=== PATIENT | male | born 1945 | race Caucasian/White ===

== ENCOUNTER → 2019-06-20 14:23 | Outpatient (CLI) | payer OTHER, SELFPAY ==
[2019-06-20 16:10] LABS: BUN Creatinine Ratio 14.5 (6-22); Blood Urea Nitrogen 16 mg/dL (9-20); Calcium 9.9 mg/dL (8.4-10.2); Carbon Dioxide 28 mmol/L (22-32); Chloride 101 mmol/L (98-107); Cholesterol 230 mg/dL (140-199); Estimated Glomerular Filt Rate > 60.0 mL/min (>60); Glucose 96 mg/dL (80-110); HDL Cholesterol 35 mg/dL (40-60); HEMOLYSIS < 15 (0-50); LDL Cholesterol Calculated 164 mg/dL (<100); Potassium 4.7 mmol/L (3.4-5.1); Sodium 139 mmol/L (137-145); Triglycerides 154 mg/dL (35-150)
== END ==
PROVIDERS: PCP Student in an Organized Health Care Education/Training Program; Visit Provider Student in an Organized Health Care Education/Training Program
DX: E78.2 Mixed hyperlipidemia (principal); I10 Essential (primary) hypertension; I25.10 Atherosclerotic heart disease of native coronary artery without angina pectoris; E55.9 Vitamin D deficiency, unspecified
CPT/HCPCS: 36415; 80048; 80061; 82306

== ENCOUNTER 2019-08-29 21:13 | Emergency (ER) | payer OTHER, SELFPAY ==
[2019-08-29 21:17] VITALS: BP 195/83; PULSE 54; RESP 16; TEMP 36.3; O2SAT 97
--- NOTE | 2019-08-29 21:28 | DI.RAD.S_ITS ---
PROCEDURE: XR CHEST 1V INDICATIONS: chest pain TECHNIQUE: One view of the chest was acquired. COMPARISON: [facility], , CHEST 2 VIEW, 02/07/2014, 14:30. [facility], , CHEST 1 VIEW, 07/03/2012, 8:26. FINDINGS: Surgical changes and devices: Post median sternotomy and CABG. Lungs and pleura: Lungs appear clear. No pleural effusions or pneumothorax. Mediastinum: Mediastinal contours appear normal. Heart size is unchanged. Bones and chest wall: No suspicious bony lesions. Overlying soft tissues appear unremarkable. IMPRESSION: No acute cardiopulmonary abnormality demonstrated. Dictated by: Zach Deleon M.D. on 08/29/2019 at 22:03 Approved by: Zach Deleon M.D. on 08/29/2019 at 22:04
[2019-08-29 21:50] LABS: Add Manual Diff / Slide Review NO; Basophils Absolute Auto 100 /uL (0-100); Basophils Percent Auto 1.2 % (0-2); Eosinophils Absolute Auto 100 /uL (0-450); Eosinophils Percent Auto 1.5 % (2-4); Hematocrit 45.9 % (41-53); Hemoglobin 15.8 g/dL (13.5-17.5); Lymphocytes Absolute Auto 2800 /uL (1100-4500); Mean Corpuscular HGB Conc 34.5 % (30-36); Mean Corpuscular Hemoglobin 31.1 PG (26-34); Mean Corpuscular Volume 90.3 fL (80-100); Monocytes Absolute Auto 1100 /uL (0-900); Monocytes Percent Auto 11.6 % (3-14); Neutrophils Absolute Auto 5400 /uL (1500-7000); Neutrophils Percent Auto 56.7 % (50-75); Platelet Count 289 X10^3/uL (150-400); Red Blood Cell Count 5.09 X10^6/uL (4.5-5.9); Red Cell Distribution Width 12.4 % (11.6-14.8); White Blood Cell Count 9.6 X10^3/uL (4.5-11.0)
[2019-08-29 21:59] LABS: Prothrombin Time 11.2 SECONDS (10.1-12.7)
[2019-08-29 22:01] LABS: PTT Partial Thromboplastin Tim 32 SECONDS (26.4-36.2)
[2019-08-29 22:03] LABS: Alanine Aminotransferase 23 IU/L (<50); Albumin 4.2 g/dL (3.5-5.0); Albumin Globulin Ratio 1.3 (1.0-2.8); Alkaline Phosphatase 89 U/L (38-126); Aspartate Aminotransferase 30 IU/L (17-59); Bilirubin Total 0.5 mg/dL (0.2-1.3); Blood Urea Nitrogen 17 mg/dL (9-20); Calcium 9.6 mg/dL (8.4-10.2); Carbon Dioxide 29 mmol/L (22-32); Chloride 100 mmol/L (98-107); Creatine Kinase 56 U/L (55-170); Estimated Glomerular Filt Rate > 60.0 mL/min (>60); Globulin 3.2 g/dL (1.7-4.1); Glucose 94 mg/dL (80-110); HEMOLYSIS 42 (0-50); Lipase 204 U/L (23-300); Sodium 137 mmol/L (137-145); Total Protein 7.4 g/dL (6.3-8.2)
[2019-08-29 22:14] LABS: Troponin I < 0.012 ng/mL (0.01-0.034)
[2019-08-29 22:56] VITALS: BP 196/88; PULSE 53; RESP 18; O2SAT 99
[2019-08-29 23:15] VITALS: BP 204/93; PULSE 46; RESP 18; O2SAT 99
[2019-08-30] VITALS: BP 206/91; PULSE 48; RESP 25; O2SAT 99
--- NOTE | 2019-08-30 00:13 | PC.NURSE ---
0000 hours: Volar splint applied right wrist per Dr Wadsworth. Pt education in re: CSM and capillary refil provided, Pt and daughter verbalize understanding of need to loosen splint as needed. Pt ambulates with steady gait across the [place].
[2019-08-30 00:30] LABS: Creatine Kinase 61 U/L (55-170)
[2019-08-30 00:43] LABS: Troponin I < 0.012 ng/mL (0.01-0.034)
--- NOTE | 2019-08-30 00:47 | ED.CHESTPAIN ---
HPI - Chest Pain General Chief Complaint: Chest Pain Stated Complaint: chest pressure - now relieving Time Seen by Provider: 08/30/19 00:47 Source: patient Mode of arrival: Ambulatory Limitations: no limitations History of Present Illness HPI narrative: This is a 74-year-old male comes to the emergency department with complaint of chest pressure that occurred around 1700. Patient states he was taking a nap. When he woke up he felt a little bit of pressure in his left chest he describes as mild to moderate. Patient states that it went away within 10 or 15 minutes he has also had a little bit of heartburn which he states is exacerbated when he lays flat and improves when he is upright. He has not had any fevers, no cold cough or congestion, no shortness of breath, no nausea or vomiting, no sweats or diaphoresis. Denies any lightheadedness. No edema in his lower upper extremities. He has not had any issues with chest pain or pressure recently. 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 He takes an aspirin daily, metoprolol an antidepressant. He does not take a statin as he had side effect issues. He denies any history of diabetes. He denies any other surgery besides his CABG. He has not had a stress test or heart catheterization Um since his surgery. He states that he was cleared by his swiss type screw machine operator and has not required any additional testing. He states he has been feeling well over the last several years and feels much healthier than he did before his CABG. Denies any allergies to medications. No tobacco, occasional alcohol and no illicit. Related Data Home Medications Medication Instructions Recorded Confirmed citalopram 20 mg tablet 20 mg PO DAILY 06/20/19 06/20/19 gemfibrozil 600 mg tablet 600 mg PO BID 06/20/19 06/20/19 lisinopril 5 mg tablet 5 mg PO DAILY 06/20/19 06/20/19 metoprolol tartrate 100 mg tablet 100 mg PO DAILY 06/20/19 06/20/19 aspirin 81 mg tablet,delayed 81 mg PO DAILY 06/21/19 06/21/19 release Allergies Allergy/AdvReac Type Severity Reaction Status Date / Time Vrtvazx-Jyb-Ttl Reductase AdvReac Unknown Verified 08/29/19 21:24 Inhibitor [QPEDRIL-BGP-ALN REDUCTASE INHIBITOR] Review of Systems Review of Systems ROS Unobtainable: All systems reviewed & are unremarkable except as noted in HPI and below Patient History Medical History (Updated 08/30/19 @ 01:11 by Merline Wadsworth DO) Constipation (Inactive) Coronary artery disease (Acute) Surgical History (Updated 08/30/19 @ 01:11 by Merline Wadsworth DO) Hx of CABG (Acute) Social History Smoking Status: Former smoker Smoking Status: Former smoker alcohol intake frequency: holidays/special occasions only Substance Use Type: does not use Exam Narrative Exam Narrative: GENERAL: Alert and oriented x three, well-nourished, well-appearing male in no acute distress. HEENT: Head normocephalic, atraumatic, EOMI, pupils reactive, face symmetric, moist mucous membranes NECK: Supple, full range of motion CARDIOVASCULAR: Regular rate and rhythm without murmurs, rubs or gallops. Patient has midline incision consistent with prior CABG. It appears healed. RESPIRATORY: Breath sounds equal bilaterally, no wheezes rales or rhonchi. ABDOMEN: Soft, nontender. Normoactive bowel sounds all 4 quadrants. No guarding or rebound, rigidity, no mass : No CVA tenderness EXTREMITIES: Normal range of motion, no clubbing or edema. Neurovascularly intact NEUROLOGICAL: Cranial nerves II through XII grossly intact. Moving all extremities SKIN: Warm, dry, no petechiae, no rashes or lesions. Initial Vital Signs Initial Vital Signs: Vital Signs Temperature 97.3 F L 08/29/19 21:17 Pulse Rate 54 L 08/29/19 21:17 Respiratory Rate 16 08/29/19 21:17 Blood Pressure 195/83 H 08/29/19 21:17 Pulse Oximetry 97 08/29/19 21:17 Course Orders Ordered: ED Orders 08/30/19 00:08 EKG-12 Lead Stat 08/30/19 00:12 Troponin & CK Cardiac Panel Stat Vital Signs Vital signs: Vital Signs - 8 hr 08/29/19 22:56 08/29/19 23:15 08/30/19 00:00 Pulse Rate 53 L 46 L 48 L Respiratory Rate 18 18 25 H Blood Pressure [Right Arm] 196/88 H 204/93 H 206/91 H Pulse Oximetry 99 99 99 08/30/19 00:51 Pulse Rate 65 Respiratory Rate 20 Blood Pressure [Right Arm] 150/90 H Pulse Oximetry 96 MDM - Chest Pain Lab Data Attestation: I reviewed the patient's lab results. Result diagrams: 08/29/19 21:40 08/29/19 21:40 Labs: Lab Results 08/29/19 08/29/19 08/29/19 Range/Units 21:40 21:40 21:40 WBC 9.6 (4.5-11.0) X10^3/uL RBC 5.09 (4.5-5.9) X10^6/uL Hgb 15.8 (13.5-17.5) g/dL Hct 45.9 (41-53) % MCV 90.3 (80-100) fL MCH 31.1 (26-34) PG MCHC 34.5 (30-36) % RDW 12.4 (11.6-14.8) % Plt Count 289 (150-400) X10^3/uL Neut % (Auto) 56.7 (50-75) % Lymph % (Auto) 29.0 (25-40) % [place] % (Auto) 11.6 (3-14) % Eos % (Auto) 1.5 L (2-4) % Baso % (Auto) 1.2 (0-2) % Neut # (Auto) 5400 (3147-4318) /uL Lymph # (Auto) 2800 (1868-3286) /uL [place] # (Auto) 1100 H (0-900) /uL Eos # (Auto) 100 (0-450) /uL Baso # (Auto) 100 (0-100) /uL PT 11.2 (10.1-12.7) SECONDS INR 1.0 (0.9-1.3) APTT 32 (26.4-36.2) SECONDS Sodium 137 (137-145) mmol/L Potassium 4.0 (3.4-5.1) mmol/L Chloride 100 (98-107) mmol/L Carbon Dioxide 29 (22-32) mmol/L BUN 17 (9-20) mg/dL Creatinine 1.00 (0.66-1.25) mg/dL Estimated GFR > 60.0 (>60) mL/min BUN/Creatinine Ratio 17.0 (6-22) Glucose 94 (80-110) mg/dL Calcium 9.6 (8.4-10.2) mg/dL Total Bilirubin 0.5 (0.2-1.3) mg/dL AST 30 (17-59) IU/L ALT 23 (<50) IU/L Alkaline Phosphatase 89 (38-126) U/L Total Creatine Kinase 56 (55-170) U/L CK-MB (CK-2) TNP CK-MB (CK-2) Rel Index TNP Troponin I < 0.012 (0.01-0.034) ng/mL Total Protein 7.4 (6.3-8.2) g/dL Albumin 4.2 (3.5-5.0) g/dL Globulin 3.2 (1.7-4.1) g/dL Albumin/Globulin Ratio 1.3 (1.0-2.8) Lipase 204 (23-300) U/L 08/30/19 Range/Units 00:12 WBC (4.5-11.0) X10^3/uL RBC (4.5-5.9) X10^6/uL Hgb (13.5-17.5) g/dL Hct (41-53) % MCV (80-100) fL MCH (26-34) PG MCHC (30-36) % RDW (11.6-14.8) % Plt Count (150-400) X10^3/uL Neut % (Auto) (50-75) % Lymph % (Auto) (25-40) % [place] % (Auto) (3-14) % Eos % (Auto) (2-4) % Baso % (Auto) (0-2) % Neut # (Auto) (7849-5251) /uL Lymph # (Auto) (8239-8995) /uL [place] # (Auto) (0-900) /uL Eos # (Auto) (0-450) /uL Baso # (Auto) (0-100) /uL PT (10.1-12.7) SECONDS INR (0.9-1.3) APTT (26.4-36.2) SECONDS Sodium (137-145) mmol/L Potassium (3.4-5.1) mmol/L Chloride (98-107) mmol/L Carbon Dioxide (22-32) mmol/L BUN (9-20) mg/dL Creatinine (0.66-1.25) mg/dL Estimated GFR (>60) mL/min BUN/Creatinine Ratio (6-22) Glucose (80-110) mg/dL Calcium (8.4-10.2) mg/dL Total Bilirubin (0.2-1.3) mg/dL AST (17-59) IU/L ALT (<50) IU/L Alkaline Phosphatase (38-126) U/L Total Creatine Kinase 61 (55-170) U/L CK-MB (CK-2) TNP CK-MB (CK-2) Rel Index TNP Troponin I < 0.012 (0.01-0.034) ng/mL Total Protein (6.3-8.2) g/dL Albumin (3.5-5.0) g/dL Globulin (1.7-4.1) g/dL Albumin/Globulin Ratio (1.0-2.8) Lipase (23-300) U/L Imaging Data Chest x-ray: Radiologist's Impression: [place] [address] XRay Report Signed Patient: José Antonio Pagan WMR#: [id number] : 6Acct:[id number] Age/Sex: 74 / MDate of Service: 08/29/19 Loc: ED Accession Number: [id number] Procedure: XR chest 1V Ordering Provider: Merline Wadsworth D.O. PROCEDURE: XR CHEST 1V INDICATIONS: chest pain TECHNIQUE: One view of the chest was acquired. COMPARISON: [facility], , CHEST 2 VIEW, 02/07/2014, 14:30. [facility], CHEST 1 VIEW, 07/03/2012, 8:26. FINDINGS: Surgical changes and devices: Post median sternotomy and CABG. Lungs and pleura: Lungs appear clear. No pleural effusions or pneumothorax. Mediastinum: Mediastinal contours appear normal. Heart size is unchanged. Bones and chest wall: No suspicious bony lesions. Overlying soft tissues appear unremarkable. IMPRESSION: No acute cardiopulmonary abnormality demonstrated. Dictated by: Zach Deleon M.D. on 08/29/2019 at 22:03 Approved by: Zach Deleon M.D. on 08/29/2019 at 22:04 ECG Data Attestation: I personally reviewed and interpreted this ECG as follows: Prior ECG tracings: available for review Interpretation: Sinus bradycardia rate of 48 P are 173 QRS of 95 and QTC of 406. No ST elevation or depression appreciated. Patient has prior EKG from 12/25/[address] segment changes. EKG 2. Shows sinus bradycardia with rate of 46 P are 184 QRS of 90 QTC of 406. No ST elevation depression. Similar to prior today. MDM Narrative Medical decision making narrative: Patient comes in with an episode of chest pressure at about 1700 today that since resolved after about 15 minutes. Patient has not had any recurrent her similar symptoms. His initial troponin and repeat were negative. Discussed with patient he clearly has risk factors with his prior CABG, does not sound like he has had any further evaluation of his CABG since he had it done in 2013 unclear if this is cardiac in nature but there is definitely potential. We discussed observation with serial enzymes and stress testing in the morning and patient defers and would prefer to return home despite recommendation for observation. We discussed that we cannot completely rule out cardiac cause and that he needs to follow up with either his primary care or Cardiology for short-term stress testing possibly catheterization if his swiss type screw machine operator felt appropriate. Patient has seen Dr. Valente, he does not have a current swiss type screw machine operator but was also offered referral. Spoke with Dr. Reeves who is covering for Dr. Valente, he will help make sure that the office follows up with the patient so that either tomorrow or on Monday or Monday patient can have repeat evaluation and stress testing. Discharge Plan Departure Patient Disposition: Home Clinical Impression: Chest pain Qualifiers: Chest pain type: unspecified Qualified Code(s): R07.9 - Chest pain, unspecified Discharge Date/Time: 08/30/19 01:18 Instructions: DI for Chest Pain Activity Restrictions/Additional Instructions: Follow-up with either your primary care physician or Cardiology for recheck and further evaluation which may include stress testing. Call tomorrow morning, I would recommend stress testing in the next 24-72 hours. Continue your aspirin daily. Return to the ER for new or recurrent symptoms, new chest pain or pressure, shortness of breath, lightheadedness, sweating, persistent vomiting or nausea, new swelling in her extremities or other new or concerning symptoms. Prescriptions: No Action metoprolol tartrate 100 mg tablet 100 mg PO DAILY RF: 0 gemfibrozil 600 mg tablet 600 mg PO BID RF: 0 lisinopril 5 mg tablet 5 mg PO DAILY RF: 0 citalopram 20 mg tablet 20 mg PO DAILY RF: 0 aspirin 81 mg tablet,delayed release (DR/EC) 81 mg PO DAILY RF: 0 Referrals: Kumar Valente MD [Primary Care Provider] - Calista Natarajan MD [Physician] -
[2019-08-30 00:51] VITALS: BP 150/90; PULSE 65; RESP 20; O2SAT 96
== END 2019-08-30 01:18 | disposition home or self-care (01) ==
PROVIDERS: Emergency Provider Emergency Medicine; PCP Student in an Organized Health Care Education/Training Program; Referring Provider Student in an Organized Health Care Education/Training Program
DX: R07.9 Chest pain, unspecified (principal); R00.1 Bradycardia, unspecified; I25.10 Atherosclerotic heart disease of native coronary artery without angina pectoris
CPT/HCPCS: 36415; 71045; 80053; 82550; 83690; 84484; 85025; 85610; 85730; 93005; 99284; 99285

== ENCOUNTER → 2019-11-29 09:20 | Outpatient (CLI) | payer OTHER, SELFPAY ==
--- NOTE | 2019-11-29 14:34 | PM.TREADMILL ---
Cardiac Stress Test Report Referral & Results Date Patient Seen: 11/29/19 Time Patient Seen: 14:15 Requesting provider: Kumar Valente Indication: Angina, hypertension Rest ECG: Normal sinus rhythm Procedure Note: Today following both written and verbal informed consent the patient was exercised according to a standard Khurram protocol patient went for a total of 4 minutes 51 seconds achieving a maximum heart rate of 147 maximum systolic blood pressure of 200. This is approximately 7.0 METs. Exercise was terminated at this point because of fatigue and calf pain. Patient was also given Cardiolite through a previously started Hep-Lock IV by the nuclear security officer approximately 1 minute prior to the cessation of exercise. Normal hemodynamic response to exercise. Rapidly short of breath and complained of calf pain after starting exertion. No change in rhythm. No ST deviations. No chest/arm/jaw pain. MAX +30% on active scale. Impression: Intermediate probability for ischemia. Patient is post CABG x4 several years ago. Will await perfusion imaging. Please note: Actual ECG tracings can be found in the PACS system.
--- NOTE | 2019-11-30 02:14 | DI.NM.S_ITS ---
DATE OF SERVICE: 11/29/2019 PROCEDURE: Exercise perfusion study. INDICATIONS: CAD status post coronary artery bypass surgery in the remote past, hypertension, hyperlipidemia. Exercise perfusion study was scheduled for CAD risk stratification. RADIOPHARMACEUTICAL: 26.2 mCi technetium-99m Myoview IV was injected at stress and 12.3 mCi technetium-99m Myoview IV was injected at rest. This is a one-day protocol. CARDIAC STRESS: The patient underwent exercise perfusion study under the supervision of an attending staff. The patient walked on Khurram protocol for 4 minutes 51 seconds and developed fatigue and leg pain. The patient achieved 100% of target heart rate. Baseline blood pressure 126/76. Peak blood pressure 200/89 with mild hypertensive response. No significant ischemic changes. No significant sustained arrhythmias. The patient achieved seven mets of workload and functional aerobic impairment positive 30%. RAW DATA: There is increased subdiaphragmatic activity. Gated study is stress LV ejection fraction 88% and resting LV ejection fraction 75%. No obvious wall motion abnormalities. Resting end-diastolic volume 76 mL. TID ratio 0.64, which is within normal limits. Lung heart ratio 0.28, which is within normal limits. MYOCARDIAL PERFUSION SCAN: Resting supine images revealed mildly decreased perfusion of base to mid inferior wall. However, stress supine and stress prone images revealed normal myocardial perfusion. CONCLUSION: I will call this study a normal myocardial perfusion study as stress supine and stress prone images revealed normal myocardial perfusion. No convincing ischemia or infarction pattern seen. Preserved LV function. Mild hypertensive response. Diminished exercise tolerance. The patient felt fatigue and leg pain. Consider workup to rule out peripheral artery disease. As far as perfusion scan is concerned, this is a low risk myocardial perfusion scan. José Antonio Pagan - ANDRZEJ/colby/KEYUR doc#: [id number]/job#: [id number] dd: 11/29/2019 17:11:00 dt: 11/30/2019 02:00:00 DICTATING MD/COPIES TO: Placido Wright MD COPIES MNE: DANILO;
== END ==
PROVIDERS: PCP Student in an Organized Health Care Education/Training Program; Referring Provider Student in an Organized Health Care Education/Training Program; Visit Provider Student in an Organized Health Care Education/Training Program
DX: I25.119 Atherosclerotic heart disease of native coronary artery with unspecified angina pectoris (principal); R07.9 Chest pain, unspecified; R53.83 Other fatigue; R05 Cough; I10 Essential (primary) hypertension; E78.5 Hyperlipidemia, unspecified; Z95.1 Presence of aortocoronary bypass graft
CPT/HCPCS: 78452; 93016; 93017; 93018; A9502

== ENCOUNTER → 2020-09-16 14:45 | Outpatient (CLI) | payer OTHER, SELFPAY ==
--- NOTE | 2020-09-16 14:50 | DI.ECHO.S_ITS ---
[facility]---------+ [facility] +---------+ : : [address] : : : : [id number] : : : : Phone: [phone] Echocardiogram Report + + :Name: BRIAN MASON Study Date: 09/16/2020 Height: 68 in : :[facility] ReadingLocation: Weight: 191 lb : : Gender: Male BSA: 2.0 m2 : :: 1945 Age: 75 yrs BP: 149/87 mmHg: :Reason For Study: ENCOUNTER FOR GENERAL ADULT MEDICAL : :EXAMINATION : :Ordering Physician: NICOLE, : :CORKY Performed By: Teetee Garzon : :Referring: CORKY RIVERA : + + Interpretation Summary Normal sinus rhythm. Normal LV size, wall thickness, wall motion and LV systolic function. EF is 60-65%. Mild LA enlargement; otherwise normal chamber sizes. No significant valvular abnormalities. Mildly dilated ascending aorta. Procedure: A two-dimensional transthoracic echocardiogram with color flow and Doppler was performed. The study quality was technically adequate. There is no prior echocardiogram noted for this patient. The patient was in sinus rhythm with heart rates between 58-75 bpm during the exam. Left Ventricle: The left ventricle is normal in size and wall thickness. The ejection fraction is estimated to be 60-65%. Diastolic parameters suggest probable normal left ventricular diastolic function and normal filling pressures. Right Ventricle: The right ventricle is normal in size and function. Atria: The left atrium is mildly dilated. Right atrial size is normal. There is no Doppler evidence for an interatrial shunt. Mitral Valve: The mitral valve is normal in structure and function. There is trace mitral regurgitation. Aortic Valve: The aortic valve is trileaflet. The aortic valve opens well. The aortic valve is slightly calcified. There is no aortic valve stenosis. No aortic regurgitation is present. Tricuspid Valve: The tricuspid valve is normal in structure and function. There is trace tricuspid regurgitation. Pulmonary artery pressures cannot be estimated because of the lack of a measurable TR jet velocity but the IVC suggests a CVP of around 3 mmHg. Pulmonic Valve: The pulmonic valve leaflets are thin and pliable; valve motion is normal. There is a trace or physiologic amount of pulmonic regurgitation. Great Vessels: The aortic root is normal size. The ascending aorta is mildly enlarged. The IVC is of normal diameter and collapses greater than 50% with a sniff. This suggests a low right atrial pressure of 3 mm Hg. Pericardium/ Pleura There is no pericardial effusion. There is no pleural effusion. MMode/2D Measurements & Calculations LVIDd: 4.8 cm LVOT diam: 2.0 cm LVIDs: 3.0 cm Ao root diam: 3.0 cm FS: 38.9 % asc Aorta Diam: 3.4 cm EPSS: 0.49 cm Ao Arch Diam (Prox Trans): 3.3 cm IVSd: 0.77 cm LVPWd: 1.1 cm LV nugent. diameter/BSA (cm/m^2): 2.4 LV sys. diameter/BSA (cm/m^2): 1.5 LA A2 area: 23.6 cm2 RA long axis: 4.7 cm LA A4 area: 21.4 cm2 RA area: 15.2 cm2 LA length (vol): 5.6 cm RA vol: 41.6 ml LA vol: 76.7 ml RA : 20.8 ml/m2 LA vol index: 38.3 ml/m2 IVC diam: 1.3 cm RVD1 (basal): 2.5 cm TAPSE: 2.1 cm Doppler Measurements & Calculations Ao V2 max: 148.9 cm/sec LVOT Max Sam: 127.2 cm/sec Ao V2 mean: 96.3 cm/sec LV V1 max P.5 mmHg Ao max P.9 mmHg LV V1 VTI: 29.9 cm Ao mean P.3 mmHg DEEDEE(I,D): 3.2 cm2 Ao V2 VTI: 30.4 cm DEEDEE(V,D): 2.8 cm2 sev ratio: 0.98 DEEDEE indexed to BSA (cm^2/m^2): 1.6 MV E max sam: 79.6 cm/sec PA V2 max: 79.6 cm/sec MV A max sam: 107.3 cm/sec PA V2 mean: 51.9 cm/sec MV E/A: 0.74 PA mean P.3 mmHg Med Peak E' Sam: 7.3 cm/sec PA pr(Accel): 25.9 mmHg E/E' med: 10.8 Lat Peak E' Sam: 11.0 cm/sec E/E' lat: 7.2 E/e' average: 9.0 MV dec time: 0.32 sec SV(LVOT): 98.0 ml Electronically signed by: Calista Natarajan M.D. on Reading Physician:09/17/2020 12:19 AM
== END ==
PROVIDERS: PCP Family Medicine; Referring Provider Physician Assistant; Visit Provider Physician Assistant
DX: Z00.00 Encounter for general adult medical examination without abnormal findings (principal); I77.89 Other specified disorders of arteries and arterioles
CPT/HCPCS: 93306

== ENCOUNTER 2021-08-07 16:18 | Emergency (ER) | payer OTHER, SELFPAY ==
[2021-08-07 16:25] VITALS: BP 119/84; PULSE 89; RESP 14; TEMP 36.6; O2SAT 96; BMI 27.3
--- NOTE | 2021-08-07 17:05 | ED.FALL ---
HPI - Fall General Chief Complaint: Fall Stated Complaint: Fell on forehead/nose injury today Time Seen by Provider: 08/07/21 17:05 Source: patient Mode of arrival: Ambulatory Limitations: no limitations History of Present Illness HPI Narrative: This is a 76-year-old who had was describes a trip and fall today. Patient had walked down town return home. He was walking down the driveway which is downsloping any states his feet got away from him any fell forward onto his face. He has abrasions over his forehead nose and cheek he has a small laceration over the bridge of his nose. Patient states he did think he had any loss of consciousness. It was not witnessed by his but his neighbor saw him in the driveway call her and she came out. Does have some history of dementia he is on amantadine and prazosin for aggression. He does take an aspirin daily, lisinopril, gemfibrozil and has had a prior CABG. He was complaining of little bit of right hip pain but has been ambulating without issue and states that it is no longer present. He has had normal range of motion. Denies other injuries other than some abrasion over his hand. His believes his tetanus is up-to-date in the last year. [facility] he does have an allergy to statins. Related Data Home Medications Medication Instructions Recorded Confirmed aspirin 81 mg tablet,delayed 81 mg PO DAILY 06/21/19 10/04/19 release Previous Rx's Medication Instructions Recorded gemfibrozil 600 mg tablet 600 mg PO BID #180 tab 10/04/19 lisinopril 20 mg tablet 20 mg PO DAILY #90 tab 10/04/19 metoprolol succinate 100 mg 100 mg PO DAILY #90 tab 12/11/19 tablet,extended release 24 hr citalopram 20 mg tablet 30 mg PO DAILY #135 tab 01/23/20 Allergies Allergy/AdvReac Type Severity Reaction Status Date / Time Fjnlknh-[id number]-[id number] Reductase AdvReac Unknown Verified 10/04/19 13:09 Inhibitor [[id number]-VOT REDUCTASE INHIBITOR] Review of Systems Review of Systems ROS Unobtainable: All systems reviewed & are unremarkable except as noted in HPI and below Patient History Medical History Constipation Coronary artery disease Surgical History Hx of CABG Social History Smoking Status: Former smoker Smoking Status: Former smoker alcohol intake frequency: holidays/special occasions only Substance Use Type: does not use Exam Narrative Exam Narrative: GEN: Patient appears in mild distress. HEAD: Patient has a abrasion across the forehead with 2 small hematomas, no raccoon/Gonzalez sign. NECK: Nontender, painless range of motion, trachea midline Positive for for Nexus criteria, there is no midline line tenderness, distracting injury, patient has his baseline altered mental status from dementia with no new changes. Neuro deficit, recent EtOH. EYES: PERRLA, EOMI ENT: External inspection normal except for abrasion over the bridge of the nose, right she right roberts. Patient does have a small 1 cm laceration over the bridge of the nose which is slightly gapped, he had is through the superficial skin but no bone is exposed or cartilage, trachea is midline, TM's are normal no hemotypanum, Nares are clear, no septal hematoma, no dental or oral injury, airway is normal and with normal occlusion, No bony tenderness RESP: Chest is nontender and has symmetric movement, no ecchymosis, breath sounds are normal no crackles, wheezes or rales CVS: Heart sounds are normal, no murmur noted, No JVD. ABG/GI: Nontender, soft, normal bowel sounds, no distention, no organomegaly, pelvic rock is negative NEURO: Oriented AOx3, neuro is grossly intact, sensation and motor is normal all 4 extremities moving, cranial nerves II through XII are intact, GCS is 15 PSYCH: Normal mood and affect SKIN: Intact except for abrasion over the right knuckle, and dry, no crepitus and without decubitus BACK: No CVA tenderness, no vertebral tenderness, no step-off's, no crepitus EXT: Atraumatic, hips are nontender, no pedal edema, normal color and temperature, normal range of motion of extremities with normal tendon exam, 2+ pulses in all four extremities Initial Vital Signs Initial Vital Signs: Vital Signs Temperature 97.8 F 08/07/21 16:25 Pulse Rate 89 08/07/21 16:25 Respiratory Rate 14 08/07/21 16:25 Blood Pressure 119/84 08/07/21 16:25 Pulse Oximetry 96 08/07/21 16:25 Procedures Laceration Repair Laceration 1: Time of procedure: 18:49 Site: face Size (cm): 1.2 Description: flap Depth: simple, single layer Local Anesthetic: lidocaine 1% Amount of anesthesia used (mL): 1.5 Pre-repair: wound explored, irrigated extensively and deep structures intact Skin layer closed with: vicryl Size (cm): 5-0 Number of sutures: 4 Technique: simple, interrupted Course Orders Ordered: Discontinued Medications Lidocaine/Prilocaine (Lidocaine/Prilocaine 5 Gm) 5 gm TOP NOW ONE Stop: 08/07/21 17:18 Last Admin: 08/07/21 17:52 Dose: 5 gm Documented by: CLAUDIA Lidocaine/Sodium Bicarbonate (Lido 1%/Sod Bicarb 8.4% (10ml) 10 Ml Syringe) 10 ml INJ NOW ONE Stop: 08/07/21 18:19 Vital Signs Vital signs: Vital Signs - 8 hr 08/07/21 16:25 Temperature 97.8 F Pulse Rate 89 Respiratory Rate 14 Blood Pressure 119/84 Pulse Oximetry 96 MDM - Fall Imaging Data CT scan - head: Radiologist's Impression: [place] [address] CT Scan Report Signed Patient: José Antonio Pagan MR#: [id number] : 1945 Acct:[id number] Age/Sex: 76 / M Date of Service: 08/07/21 Loc: ED Accession Number: [id number] ?? Procedure: CT head/brain wo con Ordering Provider: Merline Wadsworth D.O. PROCEDURE:? CT HEAD/BRAIN WO CON ? INDICATIONS:? fall, lac over nose. on asa ? TECHNIQUE:? Noncontrast 4.5 mm thick angled axial sections acquired from the foramen magnum to the vertex, with coronal and sagittal reformats.? For radiation dose reduction, the following was used:? automated exposure control, adjustment of mA and/or kV according to patient size.? ? COMPARISON:? [facility], CT, HEAD WITHOUT CONTRAST, 07/03/2012, 7:39. ? FINDINGS:? Image quality:? Excellent.? ? CSF spaces:? Basal cisterns are patent.? No extra-axial fluid collections.? The ventricles are symmetric in size and shape.? ? Brain:? No intracranial bleeds or masses.? There is cerebral volume loss for age, with resultant ventricular and sulcal prominence.? There are periventricular and deep white matter chronic small vessel ischemic changes.? There is proximal intracranial artery atherosclerosis.? ? Skull and face:? Calvarium is intact.? There is a nondisplaced distal nasal bone fracture.? Facial bones are otherwise intact within limits of this exam. ? Sinuses:? Visualized sinuses and mastoids are clear.? ? IMPRESSION:? ? Findings consistent with cerebral atrophy and microvascular ischemic changes without evidence of an acute intracranial hemorrhage or transcortical infarction. ? Nondisplaced distal nasal bone fracture.? ? Dictated by: Michael Zavala D.O. on 08/07/2021 at 16:51 ? ? Approved by: Michael Zavala D.O. on 08/07/2021 at 16:54?? CT - cervical spine: Radiologist's Impression: [place] [address] CT Scan Report Signed Patient: José Antonio Pagan MR#: [id number] : 1945 Acct:[id number] Age/Sex: 76 / M Date of Service: 08/07/21 Loc: ED Accession Number: [id number] ?? Procedure: CT cervical spine wo con Ordering Provider: Merline Wadsworth D.O. PROCEDURE:? CT CERVICAL SPINE WO CON ? INDICATIONS:? fall, hx dementia ? TECHNIQUE:? Noncontrast 3 mm thick sections acquired from the skull base to the T4 level.? Sagittal and coronal reformats were then constructed.? For radiation dose reduction, the following was used:? automated exposure control, adjustment of mA and/or kV according to patient size.? ? COMPARISON:? None. ? FINDINGS:? Image quality:? Excellent.? ? Bones:? No fractures or dislocations of the cervical spine.? Likely degenerative minimal retrolisthesis of C5 on C6.? Visualized superior ribs are intact.? Multilevel degenerative changes of the cervical spine worse at C5-C6 and C6-C7 where there is near complete intervertebral disc space loss and endplate degenerative changes.? There is at least mild bony neural foraminal stenosis at this is levels.? Nondisplaced nasal bone fracture again identified. ? Soft tissues:? Prevertebral soft tissues are normal in thickness.? No paravertebral hematomas.? No apical pneumothoraces.? [place] tonsilliths.? Scattered vascular calcifications worse within the carotid bifurcations. ? ? IMPRESSION:? ? No acute fracture or dislocation. ? Multilevel cervical spondylopathy worse at C5-C6 and C6-C7. ? Dictated by: Michael Zavala D.O. on 08/07/2021 at 16:54 ? ? Approved by: Michael Zavala D.O. on 08/07/2021 at 16:59?? MDM Narrative Medical decision making narrative: This is a 76-year-old male with a known history of dementia who appears to be at his baseline. He is accompanied by his today. He had a fall today. He has abrasions with a small laceration over his nose. states his tetanus is up-to-date. Plan for head CT, C-spine and patient does several small stitches of the laceration over the bridge of his nose. Wound care for the rest of his abrasions. Head CT is negative patient is anticoagulated with an aspirin daily. He does have a nasal fracture. Patient tolerated laceration repair well. All return precautions were discussed with patient's who helps him his daily issues. No questions or concerns otherwise. Discharge Plan Departure Patient Disposition: Home Clinical Impression: Facial laceration, Fall, Contusion of forehead, Abrasion of face, Fracture, nasal Instructions: DI for Laceration Repair -- Simple Activity Restrictions/Additional Instructions: Follow-up with your physician for recheck if you have any minor concerns. You have absorbable sutures placed. They should not require removal but if they are still present more than a week later follow-up to have them removed. Wound Care: Keep wound(s) clean and dry. Wash daily with soap and water only. Do not use over the counter products (alcohol or peroxide)on the wounds unless instructed by a physician. If wound condition worsens (increased/expanding redness, developing fluid blisters, or worsening pain), either contact your doctor for an urgent re-assessment , or return to the Emergency Department. Return to the Emergency Department for any new or worsening symptoms. Return if fever greater than 100.4 Fahrenheit, increased swelling, increasing pain or worsening symptoms such as increased discharge or spreading redness. Please return for severe headaches, confusion that is new, lightheadedness or passing out, persistent vomiting, new neck or back pain or other new or concerning symptoms. Prescriptions: No Action metoprolol succinate 100 mg tablet extended release 24 hr 100 mg PO DAILY Qty: 90 1RF citalopram 20 mg tablet 30 mg PO DAILY Qty: 135 3RF aspirin 81 mg tablet,delayed release (DR/EC) 81 mg PO DAILY 0RF lisinopril 20 mg tablet 20 mg PO DAILY Qty: 90 1RF gemfibrozil 600 mg tablet 600 mg PO BID Qty: 180 1RF Referrals: Ang Xiong DO [Primary Care Provider] -
--- NOTE | 2021-08-07 17:17 | DI.CT.S_ITS ---
PROCEDURE: CT HEAD/BRAIN WO CON INDICATIONS: fall, lac over nose. on asa TECHNIQUE: Noncontrast 4.5 mm thick angled axial sections acquired from the foramen magnum to the vertex, with coronal and sagittal reformats. For radiation dose reduction, the following was used: automated exposure control, adjustment of mA and/or kV according to patient size. COMPARISON: [facility], CT, HEAD WITHOUT CONTRAST, 07/03/2012, 7:39. FINDINGS: Image quality: Excellent. CSF spaces: Basal cisterns are patent. No extra-axial fluid collections. The ventricles are symmetric in size and shape. Brain: No intracranial bleeds or masses. There is cerebral volume loss for age, with resultant ventricular and sulcal prominence. There are periventricular and deep white matter chronic small vessel ischemic changes. There is proximal intracranial artery atherosclerosis. Skull and face: Calvarium is intact. There is a nondisplaced distal nasal bone fracture. Facial bones are otherwise intact within limits of this exam. Sinuses: Visualized sinuses and mastoids are clear. IMPRESSION: Findings consistent with cerebral atrophy and microvascular ischemic changes without evidence of an acute intracranial hemorrhage or transcortical infarction. Nondisplaced distal nasal bone fracture. Dictated by: Michael Zavala D.O. on 08/07/2021 at 16:51 Approved by: Michael Zavala D.O. on 08/07/2021 at 16:54
--- NOTE | 2021-08-07 17:17 | DI.CT.S_ITS ---
PROCEDURE: CT CERVICAL SPINE WO CON INDICATIONS: fall, hx dementia TECHNIQUE: Noncontrast 3 mm thick sections acquired from the skull base to the T4 level. Sagittal and coronal reformats were then constructed. For radiation dose reduction, the following was used: automated exposure control, adjustment of mA and/or kV according to patient size. COMPARISON: None. FINDINGS: Image quality: Excellent. Bones: No fractures or dislocations of the cervical spine. Likely degenerative minimal retrolisthesis of C5 on C6. Visualized superior ribs are intact. Multilevel degenerative changes of the cervical spine worse at C5-C6 and C6-C7 where there is near complete intervertebral disc space loss and endplate degenerative changes. There is at least mild bony neural foraminal stenosis at this is levels. Nondisplaced nasal bone fracture again identified. Soft tissues: Prevertebral soft tissues are normal in thickness. No paravertebral hematomas. No apical pneumothoraces. [place] tonsilliths. Scattered vascular calcifications worse within the carotid bifurcations. IMPRESSION: No acute fracture or dislocation. Multilevel cervical spondylopathy worse at C5-C6 and C6-C7. Dictated by: Michael Zavala D.O. on 08/07/2021 at 16:54 Approved by: Michael Zavala D.O. on 08/07/2021 at 16:59
[2021-08-07] MEDS: LIDOCAINE/PRILOCAINE 5 GM TOP (17:52)
== END 2021-08-07 19:30 | disposition home or self-care (01) ==
PROVIDERS: Emergency Provider Emergency Medicine; PCP Family Medicine
DX: S02.2XXA Fracture of nasal bones, initial encounter for closed fracture (principal); S01.21XA Laceration without foreign body of nose, initial encounter; S00.83XA Contusion of other part of head, initial encounter; W01.0XXA Fall on same level from slipping, tripping and stumbling without subsequent striking against object, initial encounter
CPT/HCPCS: 12011; 70450; 72125; 99283; 99284

== ENCOUNTER 2022-01-24 17:53 | Emergency (ER) | payer OTHER, SELFPAY ==
[2022-01-24 18:04] VITALS: BP 129/74; PULSE 62; RESP 16; TEMP 36.3; O2SAT 98; BMI 27.3
[2022-01-24 18:45] LABS: Add Manual Diff / Slide Review NO; Basophils Absolute Auto 100 /uL (0-100); Basophils Percent Auto 0.6 % (0-2); Eosinophils Absolute Auto 100 /uL (0-450); Eosinophils Percent Auto 0.9 % (2-4); Hematocrit 44.2 % (41-53); Hemoglobin 15.2 g/dL (13.5-17.5); Lymphocytes Absolute Auto 2000 /uL (1100-4500); Lymphocytes Percent Auto 21.4 % (25-40); Mean Corpuscular HGB Conc 34.3 % (30-36); Mean Corpuscular Hemoglobin 31.3 PG (26-34); Mean Corpuscular Volume 91.1 fL (80-100); Monocytes Absolute Auto 800 /uL (0-900); Monocytes Percent Auto 8.3 % (3-14); Neutrophils Absolute Auto 6500 /uL (1500-7000); Neutrophils Percent Auto 68.8 % (50-75); Platelet Count 207 X10^3/uL (150-400); Red Blood Cell Count 4.86 X10^6/uL (4.5-5.9); Red Cell Distribution Width 13.2 % (11.6-14.8); White Blood Cell Count 9.5 X10^3/uL (4.5-11.0)
[2022-01-24 18:59] LABS: Alanine Aminotransferase 16 IU/L (<50); Albumin 4.1 g/dL (3.5-5.0); Albumin Globulin Ratio 1.4 (1.0-2.8); Alkaline Phosphatase 66 U/L (38-126); Aspartate Aminotransferase 30 IU/L (17-59); BUN Creatinine Ratio 19.4 (6-22); Bilirubin Total 0.6 mg/dL (0.2-1.3); Blood Urea Nitrogen 20 mg/dL (9-20); Calcium 8.9 mg/dL (8.4-10.2); Carbon Dioxide 27 mmol/L (22-32); Chloride 105 mmol/L (98-107); Estimated Glomerular Filt Rate > 60 mL/min (>60); Glucose 98 mg/dL (80-110); HEMOLYSIS < 15 (0-50); Potassium 4.2 mmol/L (3.4-5.1); Sodium 139 mmol/L (137-145); Total Protein 7.1 g/dL (6.3-8.2)
--- NOTE | 2022-01-24 19:40 | DI.CT.S_ITS ---
PROCEDURE: CT HEAD/BRAIN WO CON INDICATIONS: confusion, sent by doctor TECHNIQUE: Noncontrast 4.5 mm thick angled axial sections acquired from the foramen magnum to the vertex, with coronal and sagittal reformats. For radiation dose reduction, the following was used: automated exposure control, adjustment of mA and/or kV according to patient size. COMPARISON: [facility], CT, CT HEAD/BRAIN WO CON, 08/07/2021, 17:34. FINDINGS: Image quality: There is mild motion artifact limiting evaluation. CSF spaces: Basal cisterns are patent. No extra-axial fluid collections. There is mild to moderate cerebral volume loss, with resultant ventricular and sulcal prominence. Brain: No intracranial hemorrhage, mass, or mass effect. There are subcortical, periventricular and deep white matter hypodensities consistent with mild to moderate chronic small vessel ischemic changes. The gilliam-white matter junction appears preserved. There is intracranial internal carotid artery atherosclerosis. Skull and face: Calvarium and visualized facial bones are intact, without suspicious lesions. Sinuses: Visualized sinuses and mastoids are clear. IMPRESSION: 1. No acute intracranial abnormality. 2. Mild to moderate cerebral volume loss and chronic white matter small vessel ischemic changes. Dictated by: Chris Frias M.D. on 01/24/2022 at 20:28 Approved by: Chris Frias M.D. on 01/24/2022 at 20:29
[2022-01-24 20:27] LABS: TSH w/ Reflex to FT4 2.46 uIU/mL (0.47-4.68)
[2022-01-24 21:01] VITALS: BP 161/72; PULSE 52; RESP 16; O2SAT 99
--- NOTE | 2022-01-24 21:02 | PC.NURSE ---
baseline dementia. Patient has no complaints. Agreeable to be in department at wifes request. reports acute changes in behavior since monday. Episodes of anger and aggression. Patient calm and cooperative in ER
--- NOTE | 2022-01-25 06:44 | ED.AMS ---
HPI - Altered Mental Status General Chief Complaint: Altered Mental Status Stated Complaint: DELIRIUM UTI Time Seen by Provider: 01/24/22 19:32 History of Present Illness HPI narrative: 76-year-old male former smoker with history of hypertension and vascular dementia presents with his in the chief complaint of some increasing confusion and visual hallucinations over at least the past few days. He denies any fever chills and has had no neck pain. He has had no chest pain or shortness of breath. He has had no new medications, missed doses or dietary change. He denies any suicidal or homicidal ideation. He has had no blurred vision or trouble with speech nor any focal neurologic symptoms. Related Data Home Medications Medication Instructions Recorded Confirmed aspirin 81 mg tablet,delayed 81 mg PO DAILY 06/21/19 10/04/19 release Previous Rx's Medication Instructions Recorded gemfibrozil 600 mg tablet 600 mg PO BID #180 tabs 10/04/19 lisinopril 20 mg tablet 20 mg PO DAILY #90 tabs 10/04/19 metoprolol succinate 100 mg 100 mg PO DAILY #90 tabs 12/11/19 tablet,extended release 24 hr citalopram 20 mg tablet 30 mg PO DAILY #135 tabs 01/23/20 Allergies Allergy/AdvReac Type Severity Reaction Status Date / Time Abbffjb-OTD-ZjJ Reductase AdvReac Unknown Verified 01/24/22 18:09 Inhibitor [BSZLYGY-VJH-UYW REDUCTASE INHIBITOR] Review of Systems Review of Systems Narrative: GENERAL: Denies chills, fatigue, malaise, fever, sweats. HEENT: Denies sinus pain, ear pain, sore throat, difficulty swallowing, dizziness. RESPIRATORY: Denies dyspnea, cough, wheezing, hemoptysis, sputum. CARDIOVASCULAR: Denies chest pain, palpitations, orthopnea, edema, GASTROINTESTINAL: Denies nausea, vomiting, abdominal pain, diarrhea, constipation, melena. : Denies dysuria, frequency, incontinence, hematuria, urinary retention. MUSCULOSKELETAL: denies weakness, joint pain, or bony pain SKIN: Denies rash, skin lesions, or other NEUROLOGIC: Denies weakness, headache, numbness, change in speech, confusion, seizures, incoordination. PSYCHIATRIC: See HPI 12 point review of systems is negative except for those stated above Patient History Medical History Constipation Coronary artery disease Surgical History Hx of CABG Social History Smoking Status: Former smoker Smoking Status: Former smoker alcohol intake frequency: holidays/special occasions only Substance Use Type: does not use and marijuana Exam Narrative Exam Narrative: GENERAL: [76] year old patient appears stated age. Well-developed patient,Pleasantly confused HEAD: Atraumatic. Normocephalic. EYES: Pupils equal round and reactive. Extraocular motions intact. No scleral icterus. No injection or drainage. ENT: Nose without bleeding, purulent drainage. Throat without erythema, tonsillar hypertrophy or exudate. Airway patent. NECK: Trachea midline. Non tender CARDIOVASCULAR: Regular rate and rhythm without murmurs, gallops, or rubs. RESPIRATORY: Clear to auscultation. Breath sounds equal bilaterally. No wheezes, rales, or rhonchi. GASTROINTESTINAL: Abdomen soft, non-tender, nondistended. EXTREMITIES: No edema or joint tenderness. BACK: Nontender without deformity or crepitance. No flank tenderness. NEURO: Cranial nerves 2-12 are grossly intact SKIN: No rash or erythema of visible areas Initial Vital Signs Initial Vital Signs: Vital Signs Temperature 97.4 F L 01/24/22 18:04 Pulse Rate 62 01/24/22 18:04 Respiratory Rate 16 01/24/22 18:04 Blood Pressure 129/74 01/24/22 18:04 Pulse Oximetry 98 01/24/22 18:04 Oxygen Delivery Method 01/24/22 18:04 MDM - Altered Mental Status Lab Data Result diagrams: 01/24/22 18:30 01/24/22 18:30 Labs: Lab Results 01/24/22 01/24/22 01/24/22 Range/Units 18:30 18:30 18:30 WBC 9.5 (4.5-11.0) X10^3/uL RBC 4.86 (4.5-5.9) X10^6/uL Hgb 15.2 (13.5-17.5) g/dL Hct 44.2 (41-53) % MCV 91.1 (80-100) fL MCH 31.3 (26-34) PG MCHC 34.3 (30-36) % RDW 13.2 (11.6-14.8) % Plt Count 207 (150-400) X10^3/uL Neut % (Auto) 68.8 (50-75) % Lymph % (Auto) 21.4 L (25-40) % [place] % (Auto) 8.3 (3-14) % Eos % (Auto) 0.9 L (2-4) % Baso % (Auto) 0.6 (0-2) % Neut # (Auto) 6500 (4993-1586) /uL Lymph # (Auto) 2000 (5562-1989) /uL [place] # (Auto) 800 (0-900) /uL Eos # (Auto) 100 (0-450) /uL Baso # (Auto) 100 (0-100) /uL Sodium 139 (137-145) mmol/L Potassium 4.2 (3.4-5.1) mmol/L Chloride 105 (98-107) mmol/L Carbon Dioxide 27 (22-32) mmol/L BUN 20 (9-20) mg/dL Creatinine 1.03 (0.66-1.25) mg/dL Estimated GFR > 60 (>60) mL/min BUN/Creatinine Ratio 19.4 (6-22) Glucose 98 (80-110) mg/dL Calcium 8.9 (8.4-10.2) mg/dL Total Bilirubin 0.6 (0.2-1.3) mg/dL AST 30 (17-59) IU/L ALT 16 (<50) IU/L Alkaline Phosphatase 66 (38-126) U/L Total Protein 7.1 (6.3-8.2) g/dL Albumin 4.1 (3.5-5.0) g/dL Globulin 3.0 (1.7-4.1) g/dL Albumin/Globulin Ratio 1.4 (1.0-2.8) TSH 2.46 (0.47-4.68) uIU/mL Urine Dip Bedside Urine Glucose Negative Bedside Urine Bilirubin - Negative Bedside Urine Ketone - Negative Urine Specific [place] 1.030 Bedside Urine Occult Blood - Negative Bedside Urine pH 5.5 Bedside Urine Protein - Negative Bedside Urine Urobilinogen - Negative Bedside Urine Nitrite - Negative Bedside Urine Leukocytes - Negative Esterase Imaging Data CT scan - head: Radiologist's Impression: ? Chart Viewer Diagnostics Subcategory All Activity ??:?? All Time ??:?? All Subcategories Filter Laboratory Imaging Microbiology Pathology Blood Bank Tests Cardiovascular Other Specialty DATE TYPE STATUS REF RANGE/AUTHOR Hx 01/24/22 19:[address] Signed Chris Frias 08/07/21 17:[address] Signed Zavala,Michael 08/07/21 17:[address] Signed Zavala,Michael 09/16/20 14:50 Echocardiogram Ultrasound Signed Calista Natarajan 11/30/19 02:14 Radiology Report Cancelled Ramiro Wrightclemencia 11/30/19 02:14 Myocardial Perfusion Scan Nuc Med Signed Placido Wright 09/01/19 11:[address] Abdomen & Pelvic 08/29/19 21:28 Chest X-Ray Signed Call,José Antonio Gottlieb ED 76, M?1945 MRN#? [id number] [facility],?[facility] ED??? 172.72cm 81.647kg BMI: 27.4kg/m? Altered Mental Status Acc#? [id number] Resus Status Not Ordered No Hx Avail Special Indicators No Data to Display Home Meds Not Confirmed Prescription Monitoring Program MEDICATIONS (INSTRUCTIONS) LAST TAKEN Active ??aspirin 81 mg tablet,delayed release ??81 mgPODAILY ??citalopram 20 mg tablet ??30 mgPODAILY#135 tabs ??gemfibrozil 600 mg tablet ??600 mgPOBID#180 tabs ??lisinopril 20 mg tablet ??20 mgPODAILY#90 tabs ??metoprolol succinate 100 mg tablet,extended release 24 hr ??100 mgPODAILY#90 tabs Allergies Jsbqucl-MFH-ZkM Reductase Inhibitor (NWCKUJH-ZJO-KTT REDUCTASE INHIBITOR) Problems ? ONSET Acute confusion Functional memory problem Hx of CABG Coronary artery disease Major depression in complete remission Excess sun exposure Mixed hyperlipidemia Hypertension Vital Signs 01/24/22 21:01 BP 161/72?H Pulse 52?L Resp 16? O2 Sat 99? Delivery Room Air? Diagnostics Reports José Antonio Linares??76??M??1945 ? Allergy/Adv: Odlnqsn-GPC-IrT Reductase Inhibitor (More??) Close Head CT (Signed) Chris Frias - 01/24/[address] (Signed) Zavala,Michael - 08/07/[address] (Signed) Zavala,Michael - 08/07/21 Echocardiogram Ultrasound (Signed) Calista Natarajan - 09/16/20 Radiology Report (Cancelled) Placido Wright - 11/30/19 Myocardial Perfusion Scan Nuc Med (Signed) Tracy Wrightjoseclemencia - 11/30/19 DI Result 09/01/19 Chest X-Ray (Signed) Call,Zach - 08/29/19 [place] [address] CT Scan Report Signed Patient: José Antonio Linares MR#: [id number] : 1945 Acct:[id number] Age/Sex: 76 / M Date of Service: 01/24/22 Loc: ED Accession Number: [id number] ?? Procedure: CT head/brain wo con Ordering Provider: Saulo Brownlee D.O. PROCEDURE:? CT HEAD/BRAIN WO CON ? INDICATIONS:? confusion, sent by doctor ? TECHNIQUE:? Noncontrast 4.5 mm thick angled axial sections acquired from the foramen magnum to the vertex, with coronal and sagittal reformats.? For radiation dose reduction, the following was used:? automated exposure control, adjustment of mA and/or kV according to patient size.? ? COMPARISON:? [facility], CT, CT HEAD/BRAIN WO CON, 08/07/2021, 17:34. ? FINDINGS:? Image quality:? There is mild motion artifact limiting evaluation.? ? CSF spaces:? Basal cisterns are patent.? No extra-axial fluid collections.? There is mild to moderate cerebral volume loss, with resultant ventricular and sulcal prominence.? ? Brain:? No intracranial hemorrhage, mass, or mass effect.? There are subcortical, periventricular and deep white matter hypodensities consistent with mild to moderate chronic small vessel ischemic changes.? The gilliam-white matter junction appears preserved. ?There is intracranial internal carotid artery atherosclerosis.? ? Skull and face:? Calvarium and visualized facial bones are intact, without suspicious lesions.? ? Sinuses:? Visualized sinuses and mastoids are clear.? ? IMPRESSION:? ? 1. No acute intracranial abnormality. ? 2. Mild to moderate cerebral volume loss and chronic white matter small vessel ischemic changes. ? ? Dictated by: Chris Frias M.D. on 01/24/2022 at 20:28 ? ? Approved by: Chris Frias M.D. on 01/24/2022 at 20:29 ? [facility] Narrative Medical decision making narrative: Patient presents with his for evaluation of some behavioral change which includes visual hallucinations. There is no suicidal or homicidal ideation. He is able to care for himself with 's assistance and there is no significant change in this. He is sent here by his psychiatrist for evaluation of a possible can cause. He has had no fever or chills, demonstrates no neurologic findings and has a very reassuring physical exam, labs and imaging. Return precautions discussed questions answered to family apparent satisfaction Discharge Plan Departure Patient Disposition: Home Clinical Impression: Acute confusion Instructions: Delirium Activity Restrictions/Additional Instructions: *You have been diagnosed with [acute confusion. As we discussed the lab work and CT scan are very reassuring and there is no obvious cause that would require a specific intervention] *What to do: *Please continue to take your regular medications as directed. [ ] New medication prescriptions sent to your pharmacy: [ ] [ ] New medication written as a paper prescription [ x] No new medications given *Please follow up with your primary care provider in 2-3 days, call for an appointment. Let them know you were seen in the Emergency Department and that we ask that you be seen in follow up. We will electronically transmit a record of today's note if your PCP is in our system *If you do not have a primary care provider please contact the [facility] Resource line at [phone]. They will ask some questions about your medical history and help get you set up with a doctor in the community. *Return to Emergency Department if you should have any new, worsening or concerning symptoms, such as [fever greater than 101 F, shaking chills, worsening pain, persistent vomiting or other bothersome symptoms] Prescriptions: No Action metoprolol succinate 100 mg tablet extended release 24 hr 100 mg PO DAILY Qty: 90 1RF citalopram 20 mg tablet 30 mg PO DAILY Qty: 135 3RF aspirin 81 mg tablet,delayed release (DR/EC) 81 mg PO DAILY lisinopril 20 mg tablet 20 mg PO DAILY Qty: 90 1RF gemfibrozil 600 mg tablet 600 mg PO BID Qty: 180 1RF Referrals: Ang Xiong DO [Primary Care Provider] - Visit Report Forms: Patient Portal/API
== END 2022-01-24 21:04 | disposition home or self-care (01) ==
PROVIDERS: Emergency Medicine; Emergency Provider Emergency Medicine; PCP Family Medicine
DX: R41.0 Disorientation, unspecified (principal); R44.1 Visual hallucinations
CPT/HCPCS: 36415; 70450; 80053; 81003; 84443; 85025; 99284

== ENCOUNTER 2022-03-21 14:54 | Emergency (ER) | payer OTHER, SELFPAY ==
[2022-03-21 14:56] VITALS: BP 167/87; PULSE 75; RESP 18; TEMP 36.6; O2SAT 97
--- NOTE | 2022-03-21 15:21 | DI.CT.S_ITS ---
PROCEDURE: CT HEAD/BRAIN WO CON INDICATIONS: altered, hallucinations TECHNIQUE: Noncontrast 4.5 mm thick angled axial sections acquired from the foramen magnum to the vertex, with coronal and sagittal reformats. For radiation dose reduction, the following was used: automated exposure control, adjustment of mA and/or kV according to patient size. COMPARISON: [facility], CT, CT HEAD/BRAIN WO CON, 01/24/2022, 19:56. FINDINGS: Image quality: Excellent. CSF spaces: Basal cisterns are patent. No extra-axial fluid collections. The ventricles are symmetric in size and shape. They appear slightly more prominent in relation to gyral and sulcal atrophy. Brain: No intracranial bleeds or masses. There is cerebral volume loss for age, with resultant ventricular and sulcal prominence. There are periventricular and deep white matter chronic small vessel ischemic changes. There is intracranial internal carotid artery atherosclerosis. Skull and face: Calvarium and visualized facial bones appear intact, without suspicious lesions. Sinuses: Visualized sinuses and mastoids are clear. IMPRESSION: 1. No acute intracranial process. 2. Moderate atrophy and chronic microvascular ischemic changes. 3. Ventricles appear slightly prominent in relation to gyral and sulcal atrophy. They are unchanged compared to prior exam. While this could represent a central atrophy pattern, recommend clinical correlation as normal pressure hydrocephalus can have a similar appearance on imaging. Dictated by: Sheridan Savage M.D. on 03/21/2022 at 15:33 Approved by: Sheridan Savage M.D. on 03/21/2022 at 15:35
--- NOTE | 2022-03-21 15:45 | ED_ITS ---
HPI - Psych <DO Greg Thomas Last Filed: 03/22/22 11:09> General Chief Complaint: Psychiatric Symptoms Stated Complaint: Hallucinations trying to hit Time Seen by Provider: 03/21/22 15:02 Source: patient and family Mode of arrival: Ambulatory History of Present Illness HPI Narrative: 77-year-old male with history of memory issues, coronary artery disease with bypass, depression, hypertension and hyperlipidemia presents with his who is concerned that he is acting abnormally if not violent today. states that the patient has had increasing episodes of visual hallucinations for many weeks if not months and had been placed on Seroquel by geriatric psychiatry at the [place] about 3 weeks ago. Other than this addition he is had no new medications, traumas, fever, chills, vomiting or other illness. He took an extra dose of Seroquel last night and effort to sleep but today upon waking has had significant and persistent visual hallucinations in which he is seeing multiple people and possibly also hearing things. states that he is increased attempts to elope and when she tries to stop him he becomes violent with her, balls up his fist and suggest that he will knock her out. She is fearful of him and unsafe to take him home hence decision to come here Related Data Home Medications Medication Instructions Recorded Confirmed aspirin 81 mg tablet,delayed 81 mg PO DAILY 06/21/19 10/04/19 release Previous Rx's Medication Instructions Recorded gemfibrozil 600 mg tablet 600 mg PO BID #180 tabs 10/04/19 lisinopril 20 mg tablet 20 mg PO DAILY #90 tabs 10/04/19 metoprolol succinate 100 mg 100 mg PO DAILY #90 tabs 12/11/19 tablet,extended release 24 hr citalopram 20 mg tablet 30 mg PO DAILY #135 tabs 01/23/20 Allergies Allergy/AdvReac Type Severity Reaction Status Date / Time [id number] Reductase AdvReac Unknown Verified 01/24/22 18:09 Inhibitor [[id number] REDUCTASE INHIBITOR] Review of Systems <DO Greg Thomas Last Filed: 03/22/22 11:09> Review of Systems ROS Unobtainable: Unobtainable due to mental status/LOC Patient History <DO Greg Thomas Last Filed: 03/22/22 11:09> Medical History Constipation Coronary artery disease Surgical History Hx of CABG Social History Smoking Status: Former smoker Smoking Status: Former smoker alcohol intake frequency: holidays/special occasions only Substance Use Type: does not use and marijuana Exam <Saulo Brownlee DO - Last Filed: 03/22/22 11:09> Narrative Exam Narrative: GENERAL: [77] year old patient appears younger than stated age. Well-developed patient, in mild distress. GCS 14 (confused). Patient speaking clearly but nonsensically, referring to many situations, possibly relating to [place] HEAD: Atraumatic. Normocephalic. EYES: Pupils equal round and reactive. Extraocular motions intact. No scleral icterus. No injection or drainage. ENT: Nose without bleeding, purulent drainage. Throat without erythema, tonsillar hypertrophy or exudate. Airway patent. NECK: Trachea midline. Non tender CARDIOVASCULAR: Regular rate and rhythm without murmurs, gallops, or rubs. RESPIRATORY: Clear to auscultation. Breath sounds equal bilaterally. No wheezes, rales, or rhonchi. GASTROINTESTINAL: Abdomen soft, non-tender, nondistended. EXTREMITIES: No edema or joint tenderness. BACK: Nontender without deformity or crepitance. No flank tenderness. NEURO: AOx3. SKIN: No rash or erythema of visible areas Initial Vital Signs Initial Vital Signs: Vital Signs Temperature 97.8 F 03/21/22 14:56 Pulse Rate 75 03/21/22 14:56 Respiratory Rate 18 03/21/22 14:56 Blood Pressure 167/87 H 03/21/22 14:56 Pulse Oximetry 97 03/21/22 14:56 Oxygen Delivery Method 03/21/22 14:56 <Donna Henriquez MD - Last Filed: 03/23/22 07:04> Initial Vital Signs Initial Vital Signs: Vital Signs Temperature 97.8 F 03/21/22 14:56 Pulse Rate 75 03/21/22 14:56 Respiratory Rate 18 03/21/22 14:56 Blood Pressure 167/87 H 03/21/22 14:56 Pulse Oximetry 97 03/21/22 14:56 Oxygen Delivery Method 03/21/22 14:56 <Merline Wadsworth, DO - Last Filed: 03/22/22 19:51> Initial Vital Signs Initial Vital Signs: Vital Signs Temperature 97.8 F 03/21/22 14:56 Pulse Rate 75 03/21/22 14:56 Respiratory Rate 18 03/21/22 14:56 Blood Pressure 167/87 H 03/21/22 14:56 Pulse Oximetry 97 03/21/22 14:56 Oxygen Delivery Method 03/21/22 14:56 Course <Saulo Brownlee, DO - Last Filed: 03/22/22 11:09> Course Course Narrative: patient is gravely disabled and unsafe for discharge. He is medically cleared a nd appropriate for evaluation by [facility] [employer] and likely [facility]. I have spoken with the who is clearly on board with this plan. She reiterates that patient had recently been started on Seroquel 50 mg morning, mid day and night. Also gabapentin 100 mg at night had been ordered. Patient's most recent admission to a facility was in January at [place] Orders Ordered: Discontinued Medications Aspirin (Aspirin Ec 81 Mg Tablet) 81 mg PO DAILY [facility] Last Admin: 03/22/22 08:53 Dose: 81 mg Documented By: JC Gabapentin (Gabapentin 100 Mg Capsule) 100 mg PO NOW ONE Stop: 03/21/22 19:03 Last Admin: 03/21/22 19:41 Dose: 100 mg Documented By: ESAU Gabapentin (Gabapentin 100 Mg Capsule) 100 mg PO NOW ONE Stop: 03/22/22 15:01 Last Admin: 03/22/22 15:22 Dose: 100 mg Documented By: CTS Gemfibrozil (Gemfibrozil 600 Mg Tablet) 600 mg PO BID ERWIN Gemfibrozil (Gemfibrozil 600 Mg Tablet) 600 mg PO BIDAC [facility] Last Admin: 03/22/22 08:52 Dose: 600 mg Documented By: JC Sodium Chloride (Normal Saline 0.9%) 1,000 mls @ 150 mls/hr IV CONT [facility] Last Infusion: 03/21/22 20:43 Dose: 0 mls/hr Documented By: Admin: 03/21/22 16:02 Dose: 150 mls/hr Documented By: JC(2) Lisinopril (Lisinopril 20 Mg Tablet) 20 mg PO DAILY [facility] Last Admin: 03/22/22 08:51 Dose: 20 mg Documented By: JC Metoprolol Succinate (Metoprolol Er 50 Mg Tablet) 100 mg PO DAILY [facility] Last Admin: 03/22/22 08:50 Dose: 100 mg Documented By: JC Quetiapine Fumarate (Quetiapine 25 Mg Tablet) 50 mg PO NOW ONE Stop: 03/21/22 19:02 Last Admin: 03/21/22 19:41 Dose: 50 mg Documented By: ESAU Quetiapine Fumarate (Quetiapine 100 Mg Tablet) 100 mg PO NOW ONE Stop: 03/21/22 22:19 Last Admin: 03/21/22 22:50 Dose: 100 mg Documented By: OTIS Quetiapine Fumarate (Quetiapine 100 Mg Tablet) 100 mg PO BID [facility] Last Admin: 03/22/22 08:38 Dose: 100 mg Documented By: JC Quetiapine Fumarate (Quetiapine 25 Mg Tablet) 25 mg PO NOW ONE Stop: 03/22/22 15:31 Last Admin: 03/22/22 15:22 Dose: 25 mg Documented By: JUNO Vital Signs Vital signs: Vital Signs - 8 hr 03/22/22 07:41 03/22/22 08:50 03/22/22 08:51 Temperature 98.4 F Pulse Rate 61 73 73 Respiratory Rate 14 Blood Pressure 157/68 H 162/81 H 163/81 H Pulse Oximetry 97 Oxygen Delivery Method Room Air <Donna Henriquez MD - Last Filed: 03/23/22 07:04> Orders Ordered: Discontinued Medications Aspirin (Aspirin Ec 81 Mg Tablet) 81 mg PO DAILY [facility] Last Admin: 03/22/22 08:53 Dose: 81 mg Documented By: JC Gabapentin (Gabapentin 100 Mg Capsule) 100 mg PO NOW ONE Stop: 03/21/22 19:03 Last Admin: 03/21/22 19:41 Dose: 100 mg Documented By: ESAU Gabapentin (Gabapentin 100 Mg Capsule) 100 mg PO NOW ONE Stop: 03/22/22 15:01 Last Admin: 03/22/22 15:22 Dose: 100 mg Documented By: JUNO Gemfibrozil (Gemfibrozil 600 Mg Tablet) 600 mg PO BID [facility] 600 Mg [facility] Last Admin: 03/22/22 08:52 Dose: 600 mg Documented By: JC Sodium Chloride (Normal Saline 0.9%) 1,000 mls @ 150 mls/hr IV CONT [facility] Last Infusion: 03/21/22 20:43 Dose: 0 mls/hr Documented By: Admin: 03/21/22 16:02 Dose: 150 mls/hr Documented By: JC(2) Lisinopril (Lisinopril 20 Mg Tablet) 20 mg PO DAILY [facility] Last Admin: 03/22/22 08:51 Dose: 20 mg Documented By: JC Metoprolol Succinate (Metoprolol Er 50 Mg Tablet) 100 mg PO DAILY [facility] Last Admin: 03/22/22 08:50 Dose: 100 mg Documented By: CJ Quetiapine Fumarate (Quetiapine 25 Mg Tablet) 50 mg PO NOW ONE Stop: 03/21/22 19:02 Last Admin: 03/21/22 19:41 Dose: 50 mg Documented By: ESAU Quetiapine Fumarate (Quetiapine 100 Mg Tablet) 100 mg PO NOW ONE Stop: 03/21/22 22:19 Last Admin: 03/21/22 22:50 Dose: 100 mg Documented By: OTIS Quetiapine Fumarate (Quetiapine 100 Mg Tablet) 100 mg PO BID [facility] Last Admin: 03/22/22 08:38 Dose: 100 mg Documented By: JC Quetiapine Fumarate (Quetiapine 25 Mg Tablet) 25 mg PO NOW ONE Stop: 03/22/22 15:31 Last Admin: 03/22/22 15:22 Dose: 25 mg Documented By: JUNO Vital Signs Vital signs: Vital Signs - 8 hr 03/22/22 07:41 03/22/22 08:50 03/22/22 08:51 Temperature 98.4 F Pulse Rate 61 73 73 Respiratory Rate 14 Blood Pressure 157/68 H 162/81 H 163/81 H Pulse Oximetry 97 Oxygen Delivery Method Room Air <Merline Wadsworth, DO - Last Filed: 03/22/22 19:51> Orders Ordered: Discontinued Medications Aspirin (Aspirin Ec 81 Mg Tablet) 81 mg PO DAILY [facility] Last Admin: 03/22/22 08:53 Dose: 81 mg Documented By: JC Gabapentin (Gabapentin 100 Mg Capsule) 100 mg PO NOW ONE Stop: 03/21/22 19:03 Last Admin: 03/21/22 19:41 Dose: 100 mg Documented By: ESAU Gabapentin (Gabapentin 100 Mg Capsule) 100 mg PO NOW ONE Stop: 03/22/22 15:01 Last Admin: 03/22/22 15:22 Dose: 100 mg Documented By: JUNO Gemfibrozil (Gemfibrozil 600 Mg Tablet) 600 mg PO BID [facility] Gemfibrozil (Gemfibrozil 600 Mg Tablet) 600 mg PO BIDAC [facility] Last Admin: 03/22/22 08:52 Dose: 600 mg Documented By: JC Sodium Chloride (Normal Saline 0.9%) 1,000 mls @ 150 mls/hr IV CONT [facility] Last Infusion: 03/21/22 20:43 Dose: 0 mls/hr Documented By: Admin: 03/21/22 16:02 Dose: 150 mls/hr Documented By: JC(2) Lisinopril (Lisinopril 20 Mg Tablet) 20 mg PO DAILY [facility] Last Admin: 03/22/22 08:51 Dose: 20 mg Documented By: JC Metoprolol Succinate (Metoprolol Er 50 Mg Tablet) 100 mg PO DAILY [facility] Last Admin: 03/22/22 08:50 Dose: 100 mg Documented By: JC Quetiapine Fumarate (Quetiapine 25 Mg Tablet) 50 mg PO NOW ONE Stop: 03/21/22 19:02 Last Admin: 03/21/22 19:41 Dose: 50 mg Documented By: ESAU Quetiapine Fumarate (Quetiapine 100 Mg Tablet) 100 mg PO NOW ONE Stop: 03/21/22 22:19 Last Admin: 03/21/22 22:50 Dose: 100 mg Documented By: OTIS Quetiapine Fumarate (Quetiapine 100 Mg Tablet) 100 mg PO BID [facility] Last Admin: 03/22/22 08:38 Dose: 100 mg Documented By: JC Quetiapine Fumarate (Quetiapine 25 Mg Tablet) 25 mg PO NOW ONE Stop: 03/22/22 15:31 Last Admin: 03/22/22 15:22 Dose: 25 mg Documented By: JUNO Vital Signs Vital signs: Vital Signs - 8 hr 03/22/22 07:41 03/22/22 08:50 03/22/22 08:51 Temperature 98.4 F Pulse Rate 61 73 73 Respiratory Rate 14 Blood Pressure 157/68 H 162/81 H 163/81 H Pulse Oximetry 97 Oxygen Delivery Method Room Air MDM - Psych <Saulo Brownlee DO - Last Filed: 03/22/22 11:09> Lab Data Result diagrams: 03/21/22 15:45 03/21/22 15:45 Labs: Lab Results 03/21/22 03/21/22 03/21/22 Range/Units 15:45 15:45 15:45 WBC 8.4 (4.5-11.0) X10^3/uL RBC 5.23 (4.5-5.9) X10^6/uL Hgb 16.4 (13.5-17.5) g/dL Hct 47.2 (41-53) % MCV 90.3 (80-100) fL MCH 31.3 (26-34) PG MCHC 34.7 (30-36) % RDW 12.8 (11.6-14.8) % Plt Count 220 (150-400) X10^3/uL Neut % (Auto) 67.7 (50-75) % Lymph % (Auto) 22.3 L (25-40) % Norman % (Auto) 8.1 (3-14) % Eos % (Auto) 1.3 L (2-4) % Baso % (Auto) 0.6 (0-2) % Neut # (Auto) 5700 (5703-6578) /uL Lymph # (Auto) 1900 (6916-6908) /uL Norman # (Auto) 700 (0-900) /uL Eos # (Auto) 100 (0-450) /uL Baso # (Auto) 0 (0-100) /uL PT 12.8 H (10.1-12.7) SECONDS INR 1.1 (0.9-1.3) APTT 30 (26-36) SECONDS Sodium 138 (137-145) mmol/L Potassium 4.1 (3.4-5.1) mmol/L Chloride 104 (98-107) mmol/L Carbon Dioxide 25 (22-32) mmol/L BUN 15 (9-20) mg/dL Creatinine 0.99 (0.66-1.25) mg/dL Estimated GFR > 60 (>60) mL/min BUN/Creatinine Ratio 15.2 (6-22) Glucose 89 (80-110) mg/dL Lactate (0.7-2.1) mmol/L Calcium 9.3 (8.4-10.2) mg/dL Total Bilirubin 0.7 (0.2-1.3) mg/dL AST 27 (17-59) IU/L ALT 24 (<50) IU/L Alkaline Phosphatase 80 (38-126) U/L Ammonia (9-30) umol/L Total Creatine Kinase 53 L (55-170) U/L CK-MB (CK-2) TNP CK-MB (CK-2) Rel Index TNP Troponin I < 0.012 (0.01-0.034) ng/mL Total Protein 7.4 (6.3-8.2) g/dL Albumin 4.2 (3.5-5.0) g/dL Globulin 3.2 (1.7-4.1) g/dL Albumin/Globulin Ratio 1.3 (1.0-2.8) TSH (0.47-4.68) uIU/mL Prolactin 8.4 (3.7-17.9) ng/mL Urine Color Urine Appearance Urine pH (4.5-8.0) Ur Specific [place] (1.000-1.035) Urine Protein (Negative) Urine Glucose (UA) (Negative) g/dL Urine Ketones (NEGATIVE) Urine Occult Blood (Negative) Urine Nitrate (Negative) Urine Bilirubin (NEGATIVE) Urine Urobilinogen (0.2) E.U./dL Ur Leukocyte Esterase (NEGATIVE) Urine RBC (0-5/HPF) Urine WBC (0-5/HPF) Ur Squamous Epith Cells (0-5/HPF) Urine Bacteria (None) Ur Culture Indicated? Salicylates < 1.0 (<20) mg/dL U Opiates 300ng/mL cut (Negative) Ur Oxycodone Screen (Negative) Urine Methadone Screen (Negative) Acetaminophen < 10 (10-30) ug/mL Ur Barbiturates Screen (Negative) U Tricyclic Antidepress (Negative) Ur Phencyclidine Scrn (Negative) Ur Amphetamines Screen (Negative) U Methamphetamines Scrn (Negative) Ur MDMA Scrn (Ecstasy) (Negative) U Benzodiazepines Scrn (Negative) Urine Cocaine Screen (Negative) U Marijuana (THC) Screen (Negative) Ethyl Alcohol < 10 ( - 10) mg/dL A. baumannii (PCR) (Not Detect) Gemini albicans (PCR) (Not Detect) C. glabrata (PCR) (Not Detect) C. krusei (PCR) (Not Detect) C. parapsilosis (PCR) (Not Detect) C. tropicalis (PCR) (Not Detect) SARS-CoV-2 (PCR) (Negative) Enterobacteriac sp PCR (Not Detect) E. cloacae complex PCR (Not Detect) Enterococcus sp PCR (Not Detect) E. coli (PCR) (Not Detect) H. influenzae (PCR) (Not Detect) Klebsiella oxytoca PCR (Not Detect) Klebsiella pneumoniae (Not Detect) List. monocytogenes PCR (Not Detect) N. meningitidis (PCR) (Not Detect) Proteus species (PCR) (Not Detect) Serratia marcescens PCR (Not Detect) Staphylococcus sp PCR (Not Detect) Staph aureus (PCR) (Not Detect) mecA-Methicil Res Gene (Not Detect) Streptococcus sp PCR (Not Detect) Group A Strep (PCR) (Not Detect) Strep agalactiae (PCR) (Not Detect) Strep pneumoniae (PCR) (Not Detect) P. aeruginosa (PCR) (Not Detect) Dane/B-Vanco Res Genes KPC-Carbap Res Gene PCR 03/21/22 03/21/22 03/21/22 Range/Units 15:45 15:45 15:45 WBC (4.5-11.0) X10^3/uL RBC (4.5-5.9) X10^6/uL Hgb (13.5-17.5) g/dL Hct (41-53) % MCV (80-100) fL MCH (26-34) PG MCHC (30-36) % RDW (11.6-14.8) % Plt Count (150-400) X10^3/uL Neut % (Auto) (50-75) % Lymph % (Auto) (25-40) % Norman % (Auto) (3-14) % Eos % (Auto) (2-4) % Baso % (Auto) (0-2) % Neut # (Auto) (4503-4837) /uL Lymph # (Auto) (0969-1174) /uL Norman # (Auto) (0-900) /uL Eos # (Auto) (0-450) /uL Baso # (Auto) (0-100) /uL PT (10.1-12.7) SECONDS INR (0.9-1.3) APTT (26-36) SECONDS Sodium (137-145) mmol/L Potassium (3.4-5.1) mmol/L Chloride (98-107) mmol/L Carbon Dioxide (22-32) mmol/L BUN (9-20) mg/dL Creatinine (0.66-1.25) mg/dL Estimated GFR (>60) mL/min BUN/Creatinine Ratio (6-22) Glucose (80-110) mg/dL Lactate 1.2 (0.7-2.1) mmol/L Calcium (8.4-10.2) mg/dL Total Bilirubin (0.2-1.3) mg/dL AST (17-59) IU/L ALT (<50) IU/L Alkaline Phosphatase (38-126) U/L Ammonia 24 (9-30) umol/L Total Creatine Kinase (55-170) U/L CK-MB (CK-2) CK-MB (CK-2) Rel Index Troponin I (0.01-0.034) ng/mL Total Protein (6.3-8.2) g/dL Albumin (3.5-5.0) g/dL Globulin (1.7-4.1) g/dL Albumin/Globulin Ratio (1.0-2.8) TSH 1.76 (0.47-4.68) uIU/mL Prolactin (3.7-17.9) ng/mL Urine Color Urine Appearance Urine pH (4.5-8.0) Ur Specific [place] (1.000-1.035) Urine Protein (Negative) Urine Glucose (UA) (Negative) g/dL Urine Ketones (NEGATIVE) Urine Occult Blood (Negative) Urine Nitrate (Negative) Urine Bilirubin (NEGATIVE) Urine Urobilinogen (0.2) E.U./dL Ur Leukocyte Esterase (NEGATIVE) Urine RBC (0-5/HPF) Urine WBC (0-5/HPF) Ur Squamous Epith Cells (0-5/HPF) Urine Bacteria (None) Ur Culture Indicated? Salicylates (<20) mg/dL U Opiates 300ng/mL cut (Negative) Ur Oxycodone Screen (Negative) Urine Methadone Screen (Negative) Acetaminophen (10-30) ug/mL Ur Barbiturates Screen (Negative) U Tricyclic Antidepress (Negative) Ur Phencyclidine Scrn (Negative) Ur Amphetamines Screen (Negative) U Methamphetamines Scrn (Negative) Ur MDMA Scrn (Ecstasy) (Negative) U Benzodiazepines Scrn (Negative) Urine Cocaine Screen (Negative) U Marijuana (THC) Screen (Negative) Ethyl Alcohol ( - 10) mg/dL A. baumannii (PCR) (Not Detect) Gemini albicans (PCR) (Not Detect) C. glabrata (PCR) (Not Detect) C. krusei (PCR) (Not Detect) C. parapsilosis (PCR) (Not Detect) C. tropicalis (PCR) (Not Detect) SARS-CoV-2 (PCR) (Negative) Enterobacteriac sp PCR (Not Detect) E. cloacae complex PCR (Not Detect) Enterococcus sp PCR (Not Detect) E. coli (PCR) (Not Detect) H. influenzae (PCR) (Not Detect) Klebsiella oxytoca PCR (Not Detect) Klebsiella pneumoniae (Not Detect) List. monocytogenes PCR (Not Detect) N. meningitidis (PCR) (Not Detect) Proteus species (PCR) (Not Detect) Serratia marcescens PCR (Not Detect) Staphylococcus sp PCR (Not Detect) Staph aureus (PCR) (Not Detect) mecA-Methicil Res Gene (Not Detect) Streptococcus sp PCR (Not Detect) Group A Strep (PCR) (Not Detect) Strep agalactiae (PCR) (Not Detect) Strep pneumoniae (PCR) (Not Detect) P. aeruginosa (PCR) (Not Detect) Dane/B-Vanco Res Genes KPC-Carbap Res Gene PCR 03/21/22 03/21/22 03/21/22 Range/Units 16:16 16:16 16:23 WBC (4.5-11.0) X10^3/uL RBC (4.5-5.9) X10^6/uL Hgb (13.5-17.5) g/dL Hct (41-53) % MCV (80-100) fL MCH (26-34) PG MCHC (30-36) % RDW (11.6-14.8) % Plt Count (150-400) X10^3/uL Neut % (Auto) (50-75) % Lymph % (Auto) (25-40) % Norman % (Auto) (3-14) % Eos % (Auto) (2-4) % Baso % (Auto) (0-2) % Neut # (Auto) (0843-5461) /uL Lymph # (Auto) (3192-3917) /uL Norman # (Auto) (0-900) /uL Eos # (Auto) (0-450) /uL Baso # (Auto) (0-100) /uL PT (10.1-12.7) SECONDS INR (0.9-1.3) APTT (26-36) SECONDS Sodium (137-145) mmol/L Potassium (3.4-5.1) mmol/L Chloride (98-107) mmol/L Carbon Dioxide (22-32) mmol/L BUN (9-20) mg/dL Creatinine (0.66-1.25) mg/dL Estimated GFR (>60) mL/min BUN/Creatinine Ratio (6-22) Glucose (80-110) mg/dL Lactate (0.7-2.1) mmol/L Calcium (8.4-10.2) mg/dL Total Bilirubin (0.2-1.3) mg/dL AST (17-59) IU/L ALT (<50) IU/L Alkaline Phosphatase (38-126) U/L Ammonia (9-30) umol/L Total Creatine Kinase (55-170) U/L CK-MB (CK-2) CK-MB (CK-2) Rel Index Troponin I (0.01-0.034) ng/mL Total Protein (6.3-8.2) g/dL Albumin (3.5-5.0) g/dL Globulin (1.7-4.1) g/dL Albumin/Globulin Ratio (1.0-2.8) TSH (0.47-4.68) uIU/mL Prolactin (3.7-17.9) ng/mL Urine Color Yellow Urine Appearance Clear Urine pH 5.0 (4.5-8.0) Ur Specific Gypsum 1.025 (1.000-1.035) Urine Protein Negative (Negative) Urine Glucose (UA) Negative (Negative) g/dL Urine Ketones Negative (NEGATIVE) Urine Occult Blood Negative (Negative) Urine Nitrate Negative (Negative) Urine Bilirubin Negative (NEGATIVE) Urine Urobilinogen 0.2 (0.2) E.U./dL Ur Leukocyte Esterase Negative (NEGATIVE) Urine RBC None seen (0-5/HPF) Urine WBC 0-1/hpf (0-5/HPF) Ur Squamous Epith Cells None seen (0-5/HPF) Urine Bacteria Occasional (0-1) (None) Ur Culture Indicated? Culture not indicate Salicylates (<20) mg/dL U Opiates 300ng/mL cut Negative (Negative) Ur Oxycodone Screen Negative (Negative) Urine Methadone Screen Negative (Negative) Acetaminophen (10-30) ug/mL Ur Barbiturates Screen Negative (Negative) U Tricyclic Antidepress Positive H (Negative) Ur Phencyclidine Scrn Negative (Negative) Ur Amphetamines Screen Negative (Negative) U Methamphetamines Scrn Negative (Negative) Ur MDMA Scrn (Ecstasy) Negative (Negative) U Benzodiazepines Scrn Negative (Negative) Urine Cocaine Screen Negative (Negative) U Marijuana (THC) Screen Negative (Negative) Ethyl Alcohol ( - 10) mg/dL A. baumannii (PCR) (Not Detect) Gemini albicans (PCR) (Not Detect) C. glabrata (PCR) (Not Detect) C. krusei (PCR) (Not Detect) C. parapsilosis (PCR) (Not Detect) C. tropicalis (PCR) (Not Detect) SARS-CoV-2 (PCR) Negative (Negative) Enterobacteriac sp PCR (Not Detect) E. cloacae complex PCR (Not Detect) Enterococcus sp PCR (Not Detect) E. coli (PCR) (Not Detect) H. influenzae (PCR) (Not Detect) Klebsiella oxytoca PCR (Not Detect) Klebsiella pneumoniae (Not Detect) List. monocytogenes PCR (Not Detect) N. meningitidis (PCR) (Not Detect) Proteus species (PCR) (Not Detect) Serratia marcescens PCR (Not Detect) Staphylococcus sp PCR (Not Detect) Staph aureus (PCR) (Not Detect) mecA-Methicil Res Gene (Not Detect) Streptococcus sp PCR (Not Detect) Group A Strep (PCR) (Not Detect) Strep agalactiae (PCR) (Not Detect) Strep pneumoniae (PCR) (Not Detect) P. aeruginosa (PCR) (Not Detect) Dane/B-Vanco Res Genes KPC-Carbap Res Gene PCR 03/21/22 Range/Units 16:23 WBC (4.5-11.0) X10^3/uL RBC (4.5-5.9) X10^6/uL Hgb (13.5-17.5) g/dL Hct (41-53) % MCV (80-100) fL MCH (26-34) PG MCHC (30-36) % RDW (11.6-14.8) % Plt Count (150-400) X10^3/uL Neut % (Auto) (50-75) % Lymph % (Auto) (25-40) % Norman % (Auto) (3-14) % Eos % (Auto) (2-4) % Baso % (Auto) (0-2) % Neut # (Auto) (7320-8824) /uL Lymph # (Auto) (1235-0072) /uL Norman # (Auto) (0-900) /uL Eos # (Auto) (0-450) /uL Baso # (Auto) (0-100) /uL PT (10.1-12.7) SECONDS INR (0.9-1.3) APTT (26-36) SECONDS Sodium (137-145) mmol/L Potassium (3.4-5.1) mmol/L Chloride (98-107) mmol/L Carbon Dioxide (22-32) mmol/L BUN (9-20) mg/dL Creatinine (0.66-1.25) mg/dL Estimated GFR (>60) mL/min BUN/Creatinine Ratio (6-22) Glucose (80-110) mg/dL Lactate (0.7-2.1) mmol/L Calcium (8.4-10.2) mg/dL Total Bilirubin (0.2-1.3) mg/dL AST (17-59) IU/L ALT (<50) IU/L Alkaline Phosphatase (38-126) U/L Ammonia (9-30) umol/L Total Creatine Kinase (55-170) U/L CK-MB (CK-2) CK-MB (CK-2) Rel Index Troponin I (0.01-0.034) ng/mL Total Protein (6.3-8.2) g/dL Albumin (3.5-5.0) g/dL Globulin (1.7-4.1) g/dL Albumin/Globulin Ratio (1.0-2.8) TSH (0.47-4.68) uIU/mL Prolactin (3.7-17.9) ng/mL Urine Color Urine Appearance Urine pH (4.5-8.0) Ur Specific [place] (1.000-1.035) Urine Protein (Negative) Urine Glucose (UA) (Negative) g/dL Urine Ketones (NEGATIVE) Urine Occult Blood (Negative) Urine Nitrate (Negative) Urine Bilirubin (NEGATIVE) Urine Urobilinogen (0.2) E.U./dL Ur Leukocyte Esterase (NEGATIVE) Urine RBC (0-5/HPF) Urine WBC (0-5/HPF) Ur Squamous Epith Cells (0-5/HPF) Urine Bacteria (None) Ur Culture Indicated? Salicylates (<20) mg/dL U Opiates 300ng/mL cut (Negative) Ur Oxycodone Screen (Negative) Urine Methadone Screen (Negative) Acetaminophen (10-30) ug/mL Ur Barbiturates Screen (Negative) U Tricyclic Antidepress (Negative) Ur Phencyclidine Scrn (Negative) Ur Amphetamines Screen (Negative) U Methamphetamines Scrn (Negative) Ur MDMA Scrn (Ecstasy) (Negative) U Benzodiazepines Scrn (Negative) Urine Cocaine Screen (Negative) U Marijuana (THC) Screen (Negative) Ethyl Alcohol ( - 10) mg/dL A. baumannii (PCR) Not detected (Not Detect) Gemini albicans (PCR) Not detected (Not Detect) C. glabrata (PCR) Not detected (Not Detect) C. krusei (PCR) Not detected (Not Detect) C. parapsilosis (PCR) Not detected (Not Detect) C. tropicalis (PCR) Not detected (Not Detect) SARS-CoV-2 (PCR) (Negative) Enterobacteriac sp PCR Not detected (Not Detect) E. cloacae complex PCR Not detected (Not Detect) Enterococcus sp PCR Not detected (Not Detect) E. coli (PCR) Not detected (Not Detect) H. influenzae (PCR) Not detected (Not Detect) Klebsiella oxytoca PCR Not detected (Not Detect) Klebsiella pneumoniae Not detected (Not Detect) List. monocytogenes PCR Not detected (Not Detect) N. meningitidis (PCR) Not detected (Not Detect) Proteus species (PCR) Not detected (Not Detect) Serratia marcescens PCR Not detected (Not Detect) Staphylococcus sp PCR Detected H (Not Detect) Staph aureus (PCR) Not detected (Not Detect) mecA-Methicil Res Gene Not detected (Not Detect) Streptococcus sp PCR Not detected (Not Detect) Group A Strep (PCR) Not detected (Not Detect) Strep agalactiae (PCR) Not detected (Not Detect) Strep pneumoniae (PCR) Not detected (Not Detect) P. aeruginosa (PCR) Not detected (Not Detect) Dane/B-Vanco Res Genes Not Reportable KPC-Carbap Res Gene PCR Not Reportable Point of Care Testing Glucose POC [address] scan - head: Radiologist's Impression: Close Head CT (Signed) Sheridan Savage - 03/21/22 Launch?Image [address] [address] [address] Scan Report Signed Patient: José Antonio Linares MR#: [id number] : 1945 Acct:[id number] Age/Sex: 77 / M Date of Service: 03/21/22 Loc: ED Accession Number: [id number] ?? Procedure: CT head/brain wo con Ordering Provider: Saulo Brownlee D.O. PROCEDURE:? CT HEAD/BRAIN WO CON ? INDICATIONS:? altered, hallucinations ? TECHNIQUE:? Noncontrast 4.5 mm thick angled axial sections acquired from the foramen magnum to the vertex, with coronal and sagittal reformats.? For radiation dose reduction, the following was used:? automated exposure control, adjustment of mA and/or kV according to patient size.? ? COMPARISON:? [facility], CT, CT HEAD/BRAIN WO CON, 01/24/2022, 19:56. ? FINDINGS:? Image quality:? Excellent.? ? CSF spaces:? Basal cisterns are patent.? No extra-axial fluid collections.? The ventricles are symmetric in size and shape.? They appear slightly more prominent in relation to gyral and sulcal atrophy. ? Brain:? No intracranial bleeds or masses.? There is cerebral volume loss for age, with resultant ventricular and sulcal prominence.? There are periventricular and deep white matter chronic small vessel ischemic changes.? There is intracranial internal carotid artery atherosclerosis.? ? Skull and face:? Calvarium and visualized facial bones appear intact, without suspicious lesions.? ? Sinuses:? Visualized sinuses and mastoids are clear.? ? IMPRESSION:? ? 1. No acute intracranial process. ? 2. Moderate atrophy and chronic microvascular ischemic changes. ? 3. Ventricles appear slightly prominent in relation to gyral and sulcal atrophy.? They are unchanged compared to prior exam.? While this could represent a central atrophy pattern, recommend clinical correlation as normal pressure hydrocephalus can have a similar appearance on imaging.? ? ? Dictated by: Sheridan Savage M.D. on 03/21/2022 at 15:33 ? ? Approved by: Sheridan Savage M.D. on 03/21/2022 at 15:35 ? <Donna Henriquez MD - Last Filed: 03/23/22 07:04> Lab Data Labs: Lab Results 03/21/22 03/21/22 03/21/22 Range/Units 15:45 15:45 15:45 WBC 8.4 (4.5-11.0) X10^3/uL RBC 5.23 (4.5-5.9) X10^6/uL Hgb 16.4 (13.5-17.5) g/dL Hct 47.2 (41-53) % MCV 90.3 (80-100) fL MCH 31.3 (26-34) PG MCHC 34.7 (30-36) % RDW 12.8 (11.6-14.8) % Plt Count 220 (150-400) X10^3/uL Neut % (Auto) 67.7 (50-75) % Lymph % (Auto) 22.3 L (25-40) % Norman % (Auto) 8.1 (3-14) % Eos % (Auto) 1.3 L (2-4) % Baso % (Auto) 0.6 (0-2) % Neut # (Auto) 5700 (9852-4565) /uL Lymph # (Auto) 1900 (2561-7462) /uL Norman # (Auto) 700 (0-900) /uL Eos # (Auto) 100 (0-450) /uL Baso # (Auto) 0 (0-100) /uL PT 12.8 H (10.1-12.7) SECONDS INR 1.1 (0.9-1.3) APTT 30 (26-36) SECONDS Sodium 138 (137-145) mmol/L Potassium 4.1 (3.4-5.1) mmol/L Chloride 104 (98-107) mmol/L Carbon Dioxide 25 (22-32) mmol/L BUN 15 (9-20) mg/dL Creatinine 0.99 (0.66-1.25) mg/dL Estimated GFR > 60 (>60) mL/min BUN/Creatinine Ratio 15.2 (6-22) Glucose 89 (80-110) mg/dL Lactate (0.7-2.1) mmol/L Calcium 9.3 (8.4-10.2) mg/dL Total Bilirubin 0.7 (0.2-1.3) mg/dL AST 27 (17-59) IU/L ALT 24 (<50) IU/L Alkaline Phosphatase 80 (38-126) U/L Ammonia (9-30) umol/L Total Creatine Kinase 53 L (55-170) U/L CK-MB (CK-2) TNP CK-MB (CK-2) Rel Index TNP Troponin I < 0.012 (0.01-0.034) ng/mL Total Protein 7.4 (6.3-8.2) g/dL Albumin 4.2 (3.5-5.0) g/dL Globulin 3.2 (1.7-4.1) g/dL Albumin/Globulin Ratio 1.3 (1.0-2.8) TSH (0.47-4.68) uIU/mL Prolactin 8.4 (3.7-17.9) ng/mL Urine Color Urine Appearance Urine pH (4.5-8.0) Ur Specific [place] (1.000-1.035) Urine Protein (Negative) Urine Glucose (UA) (Negative) g/dL Urine Ketones (NEGATIVE) Urine Occult Blood (Negative) Urine Nitrate (Negative) Urine Bilirubin (NEGATIVE) Urine Urobilinogen (0.2) E.U./dL Ur Leukocyte Esterase (NEGATIVE) Urine RBC (0-5/HPF) Urine WBC (0-5/HPF) Ur Squamous Epith Cells (0-5/HPF) Urine Bacteria (None) Ur Culture Indicated? Salicylates < 1.0 (<20) mg/dL U Opiates 300ng/mL cut (Negative) Ur Oxycodone Screen (Negative) Urine Methadone Screen (Negative) Acetaminophen < 10 (10-30) ug/mL Ur Barbiturates Screen (Negative) U Tricyclic Antidepress (Negative) Ur Phencyclidine Scrn (Negative) Ur Amphetamines Screen (Negative) U Methamphetamines Scrn (Negative) Ur MDMA Scrn (Ecstasy) (Negative) U Benzodiazepines Scrn (Negative) Urine Cocaine Screen (Negative) U Marijuana (THC) Screen (Negative) Ethyl Alcohol < 10 ( - 10) mg/dL A. baumannii (PCR) (Not Detect) Gemini albicans (PCR) (Not Detect) C. glabrata (PCR) (Not Detect) C. krusei (PCR) (Not Detect) C. parapsilosis (PCR) (Not Detect) C. tropicalis (PCR) (Not Detect) SARS-CoV-2 (PCR) (Negative) Enterobacteriac sp PCR (Not Detect) E. cloacae complex PCR (Not Detect) Enterococcus sp PCR (Not Detect) E. coli (PCR) (Not Detect) H. influenzae (PCR) (Not Detect) Klebsiella oxytoca PCR (Not Detect) Klebsiella pneumoniae (Not Detect) List. monocytogenes PCR (Not Detect) N. meningitidis (PCR) (Not Detect) Proteus species (PCR) (Not Detect) Serratia marcescens PCR (Not Detect) Staphylococcus sp PCR (Not Detect) Staph aureus (PCR) (Not Detect) mecA-Methicil Res Gene (Not Detect) Streptococcus sp PCR (Not Detect) Group A Strep (PCR) (Not Detect) Strep agalactiae (PCR) (Not Detect) Strep pneumoniae (PCR) (Not Detect) P. aeruginosa (PCR) (Not Detect) Dane/B-Vanco Res Genes KPC-Carbap Res Gene PCR 03/21/22 03/21/22 03/21/22 Range/Units 15:45 15:45 15:45 WBC (4.5-11.0) X10^3/uL RBC (4.5-5.9) X10^6/uL Hgb (13.5-17.5) g/dL Hct (41-53) % MCV (80-100) fL MCH (26-34) PG MCHC (30-36) % RDW (11.6-14.8) % Plt Count (150-400) X10^3/uL Neut % (Auto) (50-75) % Lymph % (Auto) (25-40) % Norman % (Auto) (3-14) % Eos % (Auto) (2-4) % Baso % (Auto) (0-2) % Neut # (Auto) (6881-6223) /uL Lymph # (Auto) (0387-3533) /uL Norman # (Auto) (0-900) /uL Eos # (Auto) (0-450) /uL Baso # (Auto) (0-100) /uL PT (10.1-12.7) SECONDS INR (0.9-1.3) APTT (26-36) SECONDS Sodium (137-145) mmol/L Potassium (3.4-5.1) mmol/L Chloride (98-107) mmol/L Carbon Dioxide (22-32) mmol/L BUN (9-20) mg/dL Creatinine (0.66-1.25) mg/dL Estimated GFR (>60) mL/min BUN/Creatinine Ratio (6-22) Glucose (80-110) mg/dL Lactate 1.2 (0.7-2.1) mmol/L Calcium (8.4-10.2) mg/dL Total Bilirubin (0.2-1.3) mg/dL AST (17-59) IU/L ALT (<50) IU/L Alkaline Phosphatase (38-126) U/L Ammonia 24 (9-30) umol/L Total Creatine Kinase (55-170) U/L CK-MB (CK-2) CK-MB (CK-2) Rel Index Troponin I (0.01-0.034) ng/mL Total Protein (6.3-8.2) g/dL Albumin (3.5-5.0) g/dL Globulin (1.7-4.1) g/dL Albumin/Globulin Ratio (1.0-2.8) TSH 1.76 (0.47-4.68) uIU/mL Prolactin (3.7-17.9) ng/mL Urine Color Urine Appearance Urine pH (4.5-8.0) Ur Specific [place] (1.000-1.035) Urine Protein (Negative) Urine Glucose (UA) (Negative) g/dL Urine Ketones (NEGATIVE) Urine Occult Blood (Negative) Urine Nitrate (Negative) Urine Bilirubin (NEGATIVE) Urine Urobilinogen (0.2) E.U./dL Ur Leukocyte Esterase (NEGATIVE) Urine RBC (0-5/HPF) Urine WBC (0-5/HPF) Ur Squamous Epith Cells (0-5/HPF) Urine Bacteria (None) Ur Culture Indicated? Salicylates (<20) mg/dL U Opiates 300ng/mL cut (Negative) Ur Oxycodone Screen (Negative) Urine Methadone Screen (Negative) Acetaminophen (10-30) ug/mL Ur Barbiturates Screen (Negative) U Tricyclic Antidepress (Negative) Ur Phencyclidine Scrn (Negative) Ur Amphetamines Screen (Negative) U Methamphetamines Scrn (Negative) Ur MDMA Scrn (Ecstasy) (Negative) U Benzodiazepines Scrn (Negative) Urine Cocaine Screen (Negative) U Marijuana (THC) Screen (Negative) Ethyl Alcohol ( - 10) mg/dL A. baumannii (PCR) (Not Detect) Gemini albicans (PCR) (Not Detect) C. glabrata (PCR) (Not Detect) C. krusei (PCR) (Not Detect) C. parapsilosis (PCR) (Not Detect) C. tropicalis (PCR) (Not Detect) SARS-CoV-2 (PCR) (Negative) Enterobacteriac sp PCR (Not Detect) E. cloacae complex PCR (Not Detect) Enterococcus sp PCR (Not Detect) E. coli (PCR) (Not Detect) H. influenzae (PCR) (Not Detect) Klebsiella oxytoca PCR (Not Detect) Klebsiella pneumoniae (Not Detect) List. monocytogenes PCR (Not Detect) N. meningitidis (PCR) (Not Detect) Proteus species (PCR) (Not Detect) Serratia marcescens PCR (Not Detect) Staphylococcus sp PCR (Not Detect) Staph aureus (PCR) (Not Detect) mecA-Methicil Res Gene (Not Detect) Streptococcus sp PCR (Not Detect) Group A Strep (PCR) (Not Detect) Strep agalactiae (PCR) (Not Detect) Strep pneumoniae (PCR) (Not Detect) P. aeruginosa (PCR) (Not Detect) Dane/B-Vanco Res Genes KPC-Carbap Res Gene PCR 03/21/22 03/21/22 03/21/22 Range/Units 16:16 16:16 16:23 WBC (4.5-11.0) X10^3/uL RBC (4.5-5.9) X10^6/uL Hgb (13.5-17.5) g/dL Hct (41-53) % MCV (80-100) fL MCH (26-34) PG MCHC (30-36) % RDW (11.6-14.8) % Plt Count (150-400) X10^3/uL Neut % (Auto) (50-75) % Lymph % (Auto) (25-40) % Norman % (Auto) (3-14) % Eos % (Auto) (2-4) % Baso % (Auto) (0-2) % Neut # (Auto) (5329-4498) /uL Lymph # (Auto) (0252-8688) /uL Norman # (Auto) (0-900) /uL Eos # (Auto) (0-450) /uL Baso # (Auto) (0-100) /uL PT (10.1-12.7) SECONDS INR (0.9-1.3) APTT (26-36) SECONDS Sodium (137-145) mmol/L Potassium (3.4-5.1) mmol/L Chloride (98-107) mmol/L Carbon Dioxide (22-32) mmol/L BUN (9-20) mg/dL Creatinine (0.66-1.25) mg/dL Estimated GFR (>60) mL/min BUN/Creatinine Ratio (6-22) Glucose (80-110) mg/dL Lactate (0.7-2.1) mmol/L Calcium (8.4-10.2) mg/dL Total Bilirubin (0.2-1.3) mg/dL AST (17-59) IU/L ALT (<50) IU/L Alkaline Phosphatase (38-126) U/L Ammonia (9-30) umol/L Total Creatine Kinase (55-170) U/L CK-MB (CK-2) CK-MB (CK-2) Rel Index Troponin I (0.01-0.034) ng/mL Total Protein (6.3-8.2) g/dL Albumin (3.5-5.0) g/dL Globulin (1.7-4.1) g/dL Albumin/Globulin Ratio (1.0-2.8) TSH (0.47-4.68) uIU/mL Prolactin (3.7-17.9) ng/mL Urine Color Yellow Urine Appearance Clear Urine pH 5.0 (4.5-8.0) Ur Specific Gyps[place] 1.025 (1.000-1.035) Urine Protein Negative (Negative) Urine Glucose (UA) Negative (Negative) g/dL Urine Ketones Negative (NEGATIVE) Urine Occult Blood Negative (Negative) Urine Nitrate Negative (Negative) Urine Bilirubin Negative (NEGATIVE) Urine Urobilinogen 0.2 (0.2) E.U./dL Ur Leukocyte Esterase Negative (NEGATIVE) Urine RBC None seen (0-5/HPF) Urine WBC 0-1/hpf (0-5/HPF) Ur Squamous Epith Cells None seen (0-5/HPF) Urine Bacteria Occasional (0-1) (None) Ur Culture Indicated? Culture not indicate Salicylates (<20) mg/dL U Opiates 300ng/mL cut Negative (Negative) Ur Oxycodone Screen Negative (Negative) Urine Methadone Screen Negative (Negative) Acetaminophen (10-30) ug/mL Ur Barbiturates Screen Negative (Negative) U Tricyclic Antidepress Positive H (Negative) Ur Phencyclidine Scrn Negative (Negative) Ur Amphetamines Screen Negative (Negative) U Methamphetamines Scrn Negative (Negative) Ur MDMA Scrn (Ecstasy) Negative (Negative) U Benzodiazepines Scrn Negative (Negative) Urine Cocaine Screen Negative (Negative) U Marijuana (THC) Screen Negative (Negative) Ethyl Alcohol ( - 10) mg/dL A. baumannii (PCR) (Not Detect) Gemini albicans (PCR) (Not Detect) C. glabrata (PCR) (Not Detect) C. krusei (PCR) (Not Detect) C. parapsilosis (PCR) (Not Detect) C. tropicalis (PCR) (Not Detect) SARS-CoV-2 (PCR) Negative (Negative) Enterobacteriac sp PCR (Not Detect) E. cloacae complex PCR (Not Detect) Enterococcus sp PCR (Not Detect) E. coli (PCR) (Not Detect) H. influenzae (PCR) (Not Detect) Klebsiella oxytoca PCR (Not Detect) Klebsiella pneumoniae (Not Detect) List. monocytogenes PCR (Not Detect) N. meningitidis (PCR) (Not Detect) Proteus species (PCR) (Not Detect) Serratia marcescens PCR (Not Detect) Staphylococcus sp PCR (Not Detect) Staph aureus (PCR) (Not Detect) mecA-Methicil Res Gene (Not Detect) Streptococcus sp PCR (Not Detect) Group A Strep (PCR) (Not Detect) Strep agalactiae (PCR) (Not Detect) Strep pneumoniae (PCR) (Not Detect) P. aeruginosa (PCR) (Not Detect) Dane/B-Vanco Res Genes KPC-Carbap Res Gene PCR 03/21/22 Range/Units 16:23 WBC (4.5-11.0) X10^3/uL RBC (4.5-5.9) X10^6/uL Hgb (13.5-17.5) g/dL Hct (41-53) % MCV (80-100) fL MCH (26-34) PG MCHC (30-36) % RDW (11.6-14.8) % Plt Count (150-400) X10^3/uL Neut % (Auto) (50-75) % Lymph % (Auto) (25-40) % Norman % (Auto) (3-14) % Eos % (Auto) (2-4) % Baso % (Auto) (0-2) % Neut # (Auto) (2575-6751) /uL Lymph # (Auto) (7774-8428) /uL Norman # (Auto) (0-900) /uL Eos # (Auto) (0-450) /uL Baso # (Auto) (0-100) /uL PT (10.1-12.7) SECONDS INR (0.9-1.3) APTT (26-36) SECONDS Sodium (137-145) mmol/L Potassium (3.4-5.1) mmol/L Chloride (98-107) mmol/L Carbon Dioxide (22-32) mmol/L BUN (9-20) mg/dL Creatinine (0.66-1.25) mg/dL Estimated GFR (>60) mL/min BUN/Creatinine Ratio (6-22) Glucose (80-110) mg/dL Lactate (0.7-2.1) mmol/L Calcium (8.4-10.2) mg/dL Total Bilirubin (0.2-1.3) mg/dL AST (17-59) IU/L ALT (<50) IU/L Alkaline Phosphatase (38-126) U/L Ammonia (9-30) umol/L Total Creatine Kinase (55-170) U/L CK-MB (CK-2) CK-MB (CK-2) Rel Index Troponin I (0.01-0.034) ng/mL Total Protein (6.3-8.2) g/dL Albumin (3.5-5.0) g/dL Globulin (1.7-4.1) g/dL Albumin/Globulin Ratio (1.0-2.8) TSH (0.47-4.68) uIU/mL Prolactin (3.7-17.9) ng/mL Urine Color Urine Appearance Urine pH (4.5-8.0) Ur Specific Gy[place] (1.000-1.035) Urine Protein (Negative) Urine Glucose (UA) (Negative) g/dL Urine Ketones (NEGATIVE) Urine Occult Blood (Negative) Urine Nitrate (Negative) Urine Bilirubin (NEGATIVE) Urine Urobilinogen (0.2) E.U./dL Ur Leukocyte Esterase (NEGATIVE) Urine RBC (0-5/HPF) Urine WBC (0-5/HPF) Ur Squamous Epith Cells (0-5/HPF) Urine Bacteria (None) Ur Culture Indicated? Salicylates (<20) mg/dL U Opiates 300ng/mL cut (Negative) Ur Oxycodone Screen (Negative) Urine Methadone Screen (Negative) Acetaminophen (10-30) ug/mL Ur Barbiturates Screen (Negative) U Tricyclic Antidepress (Negative) Ur Phencyclidine Scrn (Negative) Ur Amphetamines Screen (Negative) U Methamphetamines Scrn (Negative) Ur MDMA Scrn (Ecstasy) (Negative) U Benzodiazepines Scrn (Negative) Urine Cocaine Screen (Negative) U Marijuana (THC) Screen (Negative) Ethyl Alcohol ( - 10) mg/dL A. baumannii (PCR) Not detected (Not Detect) Gemini albicans (PCR) Not detected (Not Detect) C. glabrata (PCR) Not detected (Not Detect) C. krusei (PCR) Not detected (Not Detect) C. parapsilosis (PCR) Not detected (Not Detect) C. tropicalis (PCR) Not detected (Not Detect) SARS-CoV-2 (PCR) (Negative) Enterobacteriac sp PCR Not detected (Not Detect) E. cloacae complex PCR Not detected (Not Detect) Enterococcus sp PCR Not detected (Not Detect) E. coli (PCR) Not detected (Not Detect) H. influenzae (PCR) Not detected (Not Detect) Klebsiella oxytoca PCR Not detected (Not Detect) Klebsiella pneumoniae Not detected (Not Detect) List. monocytogenes PCR Not detected (Not Detect) N. meningitidis (PCR) Not detected (Not Detect) Proteus species (PCR) Not detected (Not Detect) Serratia marcescens PCR Not detected (Not Detect) Staphylococcus sp PCR Detected H (Not Detect) Staph aureus (PCR) Not detected (Not Detect) mecA-Methicil Res Gene Not detected (Not Detect) Streptococcus sp PCR Not detected (Not Detect) Group A Strep (PCR) Not detected (Not Detect) Strep agalactiae (PCR) Not detected (Not Detect) Strep pneumoniae (PCR) Not detected (Not Detect) P. aeruginosa (PCR) Not detected (Not Detect) Dane/B-Vanco Res Genes Not Reportable KPC-Carbap Res Gene PCR Not Reportable Point of Care Testing Glucose POC 112 MDM Narrative Medical decision making narrative: 77-year-old gentleman with a history of increasing agitation and violent outbursts and is reporting increased visual hallucinations and states that she is afraid to be with him any longer. Comes in for further evaluation he is medically cleared and DCR consult is obtained. 10pm DCR feels that it is appropriate to detained this gentleman and he is beginning to make phone calls. Apparently there are no geriatric psych beds available in [facility] this evening. He has a couple of other calls to make and the will let us know his final disposition for the evening. Our social staff worker is also been working on possible medical options and there may be a bed available tomorrow at [facility]. This gentleman is stable and comfortable for the evening <Merline Wadsworth, DO - Last Filed: 03/22/22 19:51> Lab Data Labs: Lab Results 03/21/22 03/21/22 03/21/22 Range/Units 15:45 15:45 15:45 WBC 8.4 (4.5-11.0) X10^3/uL RBC 5.23 (4.5-5.9) X10^6/uL Hgb 16.4 (13.5-17.5) g/dL Hct 47.2 (41-53) % MCV 90.3 (80-100) fL MCH 31.3 (26-34) PG MCHC 34.7 (30-36) % RDW 12.8 (11.6-14.8) % Plt Count 220 (150-400) X10^3/uL Neut % (Auto) 67.7 (50-75) % Lymph % (Auto) 22.3 L (25-40) % Norman % (Auto) 8.1 (3-14) % Eos % (Auto) 1.3 L (2-4) % Baso % (Auto) 0.6 (0-2) % Neut # (Auto) 5700 (5574-5333) /uL Lymph # (Auto) 1900 (2158-3287) /uL Norman # (Auto) 700 (0-900) /uL Eos # (Auto) 100 (0-450) /uL Baso # (Auto) 0 (0-100) /uL PT 12.8 H (10.1-12.7) SECONDS INR 1.1 (0.9-1.3) APTT 30 (26-36) SECONDS Sodium 138 (137-145) mmol/L Potassium 4.1 (3.4-5.1) mmol/L Chloride 104 (98-107) mmol/L Carbon Dioxide 25 (22-32) mmol/L BUN 15 (9-20) mg/dL Creatinine 0.99 (0.66-1.25) mg/dL Estimated GFR > 60 (>60) mL/min BUN/Creatinine Ratio 15.2 (6-22) Glucose 89 (80-110) mg/dL Lactate (0.7-2.1) mmol/L Calcium 9.3 (8.4-10.2) mg/dL Total Bilirubin 0.7 (0.2-1.3) mg/dL AST 27 (17-59) IU/L ALT 24 (<50) IU/L Alkaline Phosphatase 80 (38-126) U/L Ammonia (9-30) umol/L Total Creatine Kinase 53 L (55-170) U/L CK-MB (CK-2) TNP CK-MB (CK-2) Rel Index TNP Troponin I < 0.012 (0.01-0.034) ng/mL Total Protein 7.4 (6.3-8.2) g/dL Albumin 4.2 (3.5-5.0) g/dL Globulin 3.2 (1.7-4.1) g/dL Albumin/Globulin Ratio 1.3 (1.0-2.8) TSH (0.47-4.68) uIU/mL Prolactin 8.4 (3.7-17.9) ng/mL Urine Color Urine Appearance Urine pH (4.5-8.0) Ur Specific Gypsum (1.000-1.035) Urine Protein (Negative) Urine Glucose (UA) (Negative) g/dL Urine Ketones (NEGATIVE) Urine Occult Blood (Negative) Urine Nitrate (Negative) Urine Bilirubin (NEGATIVE) Urine Urobilinogen (0.2) E.U./dL Ur Leukocyte Esterase (NEGATIVE) Urine RBC (0-5/HPF) Urine WBC (0-5/HPF) Ur Squamous Epith Cells (0-5/HPF) Urine Bacteria (None) Ur Culture Indicated? Salicylates < 1.0 (<20) mg/dL U Opiates 300ng/mL cut (Negative) Ur Oxycodone Screen (Negative) Urine Methadone Screen (Negative) Acetaminophen < 10 (10-30) ug/mL Ur Barbiturates Screen (Negative) U Tricyclic Antidepress (Negative) Ur Phencyclidine Scrn (Negative) Ur Amphetamines Screen (Negative) U Methamphetamines Scrn (Negative) Ur MDMA Scrn (Ecstasy) (Negative) U Benzodiazepines Scrn (Negative) Urine Cocaine Screen (Negative) U Marijuana (THC) Screen (Negative) Ethyl Alcohol < 10 ( - 10) mg/dL A. baumannii (PCR) (Not Detect) Gemini albicans (PCR) (Not Detect) C. glabrata (PCR) (Not Detect) C. krusei (PCR) (Not Detect) C. parapsilosis (PCR) (Not Detect) C. tropicalis (PCR) (Not Detect) SARS-CoV-2 (PCR) (Negative) Enterobacteriac sp PCR (Not Detect) E. cloacae complex PCR (Not Detect) Enterococcus sp PCR (Not Detect) E. coli (PCR) (Not Detect) H. influenzae (PCR) (Not Detect) Klebsiella oxytoca PCR (Not Detect) Klebsiella pneumoniae (Not Detect) List. monocytogenes PCR (Not Detect) N. meningitidis (PCR) (Not Detect) Proteus species (PCR) (Not Detect) Serratia marcescens PCR (Not Detect) Staphylococcus sp PCR (Not Detect) Staph aureus (PCR) (Not Detect) mecA-Methicil Res Gene (Not Detect) Streptococcus sp PCR (Not Detect) Group A Strep (PCR) (Not Detect) Strep agalactiae (PCR) (Not Detect) Strep pneumoniae (PCR) (Not Detect) P. aeruginosa (PCR) (Not Detect) Dane/B-Vanco Res Genes KPC-Carbap Res Gene PCR 03/21/22 03/21/22 03/21/22 Range/Units 15:45 15:45 15:45 WBC (4.5-11.0) X10^3/uL RBC (4.5-5.9) X10^6/uL Hgb (13.5-17.5) g/dL Hct (41-53) % MCV (80-100) fL MCH (26-34) PG MCHC (30-36) % RDW (11.6-14.8) % Plt Count (150-400) X10^3/uL Neut % (Auto) (50-75) % Lymph % (Auto) (25-40) % Norman % (Auto) (3-14) % Eos % (Auto) (2-4) % Baso % (Auto) (0-2) % Neut # (Auto) (0980-6936) /uL Lymph # (Auto) (3938-7289) /uL Norman # (Auto) (0-900) /uL Eos # (Auto) (0-450) /uL Baso # (Auto) (0-100) /uL PT (10.1-12.7) SECONDS INR (0.9-1.3) APTT (26-36) SECONDS Sodium (137-145) mmol/L Potassium (3.4-5.1) mmol/L Chloride (98-107) mmol/L Carbon Dioxide (22-32) mmol/L BUN (9-20) mg/dL Creatinine (0.66-1.25) mg/dL Estimated GFR (>60) mL/min BUN/Creatinine Ratio (6-22) Glucose (80-110) mg/dL Lactate 1.2 (0.7-2.1) mmol/L Calcium (8.4-10.2) mg/dL Total Bilirubin (0.2-1.3) mg/dL AST (17-59) IU/L ALT (<50) IU/L Alkaline Phosphatase (38-126) U/L Ammonia 24 (9-30) umol/L Total Creatine Kinase (55-170) U/L CK-MB (CK-2) CK-MB (CK-2) Rel Index Troponin I (0.01-0.034) ng/mL Total Protein (6.3-8.2) g/dL Albumin (3.5-5.0) g/dL Globulin (1.7-4.1) g/dL Albumin/Globulin Ratio (1.0-2.8) TSH 1.76 (0.47-4.68) uIU/mL Prolactin (3.7-17.9) ng/mL Urine Color Urine Appearance Urine pH (4.5-8.0) Ur Specific [place] (1.000-1.035) Urine Protein (Negative) Urine Glucose (UA) (Negative) g/dL Urine Ketones (NEGATIVE) Urine Occult Blood (Negative) Urine Nitrate (Negative) Urine Bilirubin (NEGATIVE) Urine Urobilinogen (0.2) E.U./dL Ur Leukocyte Esterase (NEGATIVE) Urine RBC (0-5/HPF) Urine WBC (0-5/HPF) Ur Squamous Epith Cells (0-5/HPF) Urine Bacteria (None) Ur Culture Indicated? Salicylates (<20) mg/dL U Opiates 300ng/mL cut (Negative) Ur Oxycodone Screen (Negative) Urine Methadone Screen (Negative) Acetaminophen (10-30) ug/mL Ur Barbiturates Screen (Negative) U Tricyclic Antidepress (Negative) Ur Phencyclidine Scrn (Negative) Ur Amphetamines Screen (Negative) U Methamphetamines Scrn (Negative) Ur MDMA Scrn (Ecstasy) (Negative) U Benzodiazepines Scrn (Negative) Urine Cocaine Screen (Negative) U Marijuana (THC) Screen (Negative) Ethyl Alcohol ( - 10) mg/dL A. baumannii (PCR) (Not Detect) Gemini albicans (PCR) (Not Detect) C. glabrata (PCR) (Not Detect) C. krusei (PCR) (Not Detect) C. parapsilosis (PCR) (Not Detect) C. tropicalis (PCR) (Not Detect) SARS-CoV-2 (PCR) (Negative) Enterobacteriac sp PCR (Not Detect) E. cloacae complex PCR (Not Detect) Enterococcus sp PCR (Not Detect) E. coli (PCR) (Not Detect) H. influenzae (PCR) (Not Detect) Klebsiella oxytoca PCR (Not Detect) Klebsiella pneumoniae (Not Detect) List. monocytogenes PCR (Not Detect) N. meningitidis (PCR) (Not Detect) Proteus species (PCR) (Not Detect) Serratia marcescens PCR (Not Detect) Staphylococcus sp PCR (Not Detect) Staph aureus (PCR) (Not Detect) mecA-Methicil Res Gene (Not Detect) Streptococcus sp PCR (Not Detect) Group A Strep (PCR) (Not Detect) Strep agalactiae (PCR) (Not Detect) Strep pneumoniae (PCR) (Not Detect) P. aeruginosa (PCR) (Not Detect) Dane/B-Vanco Res Genes KPC-Carbap Res Gene PCR 03/21/22 03/21/22 03/21/22 Range/Units 16:16 16:16 16:23 WBC (4.5-11.0) X10^3/uL RBC (4.5-5.9) X10^6/uL Hgb (13.5-17.5) g/dL Hct (41-53) % MCV (80-100) fL MCH (26-34) PG MCHC (30-36) % RDW (11.6-14.8) % Plt Count (150-400) X10^3/uL Neut % (Auto) (50-75) % Lymph % (Auto) (25-40) % Norman % (Auto) (3-14) % Eos % (Auto) (2-4) % Baso % (Auto) (0-2) % Neut # (Auto) (0351-9342) /uL Lymph # (Auto) (3171-6746) /uL Norman # (Auto) (0-900) /uL Eos # (Auto) (0-450) /uL Baso # (Auto) (0-100) /uL PT (10.1-12.7) SECONDS INR (0.9-1.3) APTT (26-36) SECONDS Sodium (137-145) mmol/L Potassium (3.4-5.1) mmol/L Chloride (98-107) mmol/L Carbon Dioxide (22-32) mmol/L BUN (9-20) mg/dL Creatinine (0.66-1.25) mg/dL Estimated GFR (>60) mL/min BUN/Creatinine Ratio (6-22) Glucose (80-110) mg/dL Lactate (0.7-2.1) mmol/L Calcium (8.4-10.2) mg/dL Total Bilirubin (0.2-1.3) mg/dL AST (17-59) IU/L ALT (<50) IU/L Alkaline Phosphatase (38-126) U/L Ammonia (9-30) umol/L Total Creatine Kinase (55-170) U/L CK-MB (CK-2) CK-MB (CK-2) Rel Index Troponin I (0.01-0.034) ng/mL Total Protein (6.3-8.2) g/dL Albumin (3.5-5.0) g/dL Globulin (1.7-4.1) g/dL Albumin/Globulin Ratio (1.0-2.8) TSH (0.47-4.68) uIU/mL Prolactin (3.7-17.9) ng/mL Urine Color Yellow Urine Appearance Clear Urine pH 5.0 (4.5-8.0) Ur Specific [place] 1.025 (1.000-1.035) Urine Protein Negative (Negative) Urine Glucose (UA) Negative (Negative) g/dL Urine Ketones Negative (NEGATIVE) Urine Occult Blood Negative (Negative) Urine Nitrate Negative (Negative) Urine Bilirubin Negative (NEGATIVE) Urine Urobilinogen 0.2 (0.2) E.U./dL Ur Leukocyte Esterase Negative (NEGATIVE) Urine RBC None seen (0-5/HPF) Urine WBC 0-1/hpf (0-5/HPF) Ur Squamous Epith Cells None seen (0-5/HPF) Urine Bacteria Occasional (0-1) (None) Ur Culture Indicated? Culture not indicate Salicylates (<20) mg/dL U Opiates 300ng/mL cut Negative (Negative) Ur Oxycodone Screen Negative (Negative) Urine Methadone Screen Negative (Negative) Acetaminophen (10-30) ug/mL Ur Barbiturates Screen Negative (Negative) U Tricyclic Antidepress Positive H (Negative) Ur Phencyclidine Scrn Negative (Negative) Ur Amphetamines Screen Negative (Negative) U Methamphetamines Scrn Negative (Negative) Ur MDMA Scrn (Ecstasy) Negative (Negative) U Benzodiazepines Scrn Negative (Negative) Urine Cocaine Screen Negative (Negative) U Marijuana (THC) Screen Negative (Negative) Ethyl Alcohol ( - 10) mg/dL A. baumannii (PCR) (Not Detect) Gemini albicans (PCR) (Not Detect) C. glabrata (PCR) (Not Detect) C. krusei (PCR) (Not Detect) C. parapsilosis (PCR) (Not Detect) C. tropicalis (PCR) (Not Detect) SARS-CoV-2 (PCR) Negative (Negative) Enterobacteriac sp PCR (Not Detect) E. cloacae complex PCR (Not Detect) Enterococcus sp PCR (Not Detect) E. coli (PCR) (Not Detect) H. influenzae (PCR) (Not Detect) Klebsiella oxytoca PCR (Not Detect) Klebsiella pneumoniae (Not Detect) List. monocytogenes PCR (Not Detect) N. meningitidis (PCR) (Not Detect) Proteus species (PCR) (Not Detect) Serratia marcescens PCR (Not Detect) Staphylococcus sp PCR (Not Detect) Staph aureus (PCR) (Not Detect) mecA-Methicil Res Gene (Not Detect) Streptococcus sp PCR (Not Detect) Group A Strep (PCR) (Not Detect) Strep agalactiae (PCR) (Not Detect) Strep pneumoniae (PCR) (Not Detect) P. aeruginosa (PCR) (Not Detect) Dane/B-Vanco Res Genes KPC-Carbap Res Gene PCR 03/21/22 Range/Units 16:23 WBC (4.5-11.0) X10^3/uL RBC (4.5-5.9) X10^6/uL Hgb (13.5-17.5) g/dL Hct (41-53) % MCV (80-100) fL MCH (26-34) PG MCHC (30-36) % RDW (11.6-14.8) % Plt Count (150-400) X10^3/uL Neut % (Auto) (50-75) % Lymph % (Auto) (25-40) % Norman % (Auto) (3-14) % Eos % (Auto) (2-4) % Baso % (Auto) (0-2) % Neut # (Auto) (3137-4116) /uL Lymph # (Auto) (9436-1408) /uL Norman # (Auto) (0-900) /uL Eos # (Auto) (0-450) /uL Baso # (Auto) (0-100) /uL PT (10.1-12.7) SECONDS INR (0.9-1.3) APTT (26-36) SECONDS Sodium (137-145) mmol/L Potassium (3.4-5.1) mmol/L Chloride (98-107) mmol/L Carbon Dioxide (22-32) mmol/L BUN (9-20) mg/dL Creatinine (0.66-1.25) mg/dL Estimated GFR (>60) mL/min BUN/Creatinine Ratio (6-22) Glucose (80-110) mg/dL Lactate (0.7-2.1) mmol/L Calcium (8.4-10.2) mg/dL Total Bilirubin (0.2-1.3) mg/dL AST (17-59) IU/L ALT (<50) IU/L Alkaline Phosphatase (38-126) U/L Ammonia (9-30) umol/L Total Creatine Kinase (55-170) U/L CK-MB (CK-2) CK-MB (CK-2) Rel Index Troponin I (0.01-0.034) ng/mL Total Protein (6.3-8.2) g/dL Albumin (3.5-5.0) g/dL Globulin (1.7-4.1) g/dL Albumin/Globulin Ratio (1.0-2.8) TSH (0.47-4.68) uIU/mL Prolactin (3.7-17.9) ng/mL Urine Color Urine Appearance Urine pH (4.5-8.0) Ur Specific Gy[place]um (1.000-1.035) Urine Protein (Negative) Urine Glucose (UA) (Negative) g/dL Urine Ketones (NEGATIVE) Urine Occult Blood (Negative) Urine Nitrate (Negative) Urine Bilirubin (NEGATIVE) Urine Urobilinogen (0.2) E.U./dL Ur Leukocyte Esterase (NEGATIVE) Urine RBC (0-5/HPF) Urine WBC (0-5/HPF) Ur Squamous Epith Cells (0-5/HPF) Urine Bacteria (None) Ur Culture Indicated? Salicylates (<20) mg/dL U Opiates 300ng/mL cut (Negative) Ur Oxycodone Screen (Negative) Urine Methadone Screen (Negative) Acetaminophen (10-30) ug/mL Ur Barbiturates Screen (Negative) U Tricyclic Antidepress (Negative) Ur Phencyclidine Scrn (Negative) Ur Amphetamines Screen (Negative) U Methamphetamines Scrn (Negative) Ur MDMA Scrn (Ecstasy) (Negative) U Benzodiazepines Scrn (Negative) Urine Cocaine Screen (Negative) U Marijuana (THC) Screen (Negative) Ethyl Alcohol ( - 10) mg/dL A. baumannii (PCR) Not detected (Not Detect) Gemini albicans (PCR) Not detected (Not Detect) C. glabrata (PCR) Not detected (Not Detect) C. krusei (PCR) Not detected (Not Detect) C. parapsilosis (PCR) Not detected (Not Detect) C. tropicalis (PCR) Not detected (Not Detect) SARS-CoV-2 (PCR) (Negative) Enterobacteriac sp PCR Not detected (Not Detect) E. cloacae complex PCR Not detected (Not Detect) Enterococcus sp PCR Not detected (Not Detect) E. coli (PCR) Not detected (Not Detect) H. influenzae (PCR) Not detected (Not Detect) Klebsiella oxytoca PCR Not detected (Not Detect) Klebsiella pneumoniae Not detected (Not Detect) List. monocytogenes PCR Not detected (Not Detect) N. meningitidis (PCR) Not detected (Not Detect) Proteus species (PCR) Not detected (Not Detect) Serratia marcescens PCR Not detected (Not Detect) Staphylococcus sp PCR Detected H (Not Detect) Staph aureus (PCR) Not detected (Not Detect) mecA-Methicil Res Gene Not detected (Not Detect) Streptococcus sp PCR Not detected (Not Detect) Group A Strep (PCR) Not detected (Not Detect) Strep agalactiae (PCR) Not detected (Not Detect) Strep pneumoniae (PCR) Not detected (Not Detect) P. aeruginosa (PCR) Not detected (Not Detect) Dane/B-Vanco Res Genes Not Reportable KPC-Carbap Res Gene PCR Not Reportable Point of Care Testing Glucose POC 112 MDM Narrative Medical decision making narrative: 77-year-old gentleman with a history of increasing agitation and violent outbursts and is reporting increased visual hallucinations and states that she is afraid to be with him any longer. Comes in for further evaluation he is medically cleared and DCR consult is obtained. 10pm DCR feels that it is appropriate to detained this gentleman and he is beginning to make phone calls. Apparently there are no geriatric psych beds available in [facility] this evening. He has a couple of other calls to make and the will let us know his final disposition for the evening. Our social staff worker is also been working on possible medical options and there may be a bed available tomorrow at [facility]. This gentleman is stable and comfortable for the evening Mank 03/22/22: Patient was felt to be appropriate for detainment by DCR and no [facility] beds are available so patient had a walk away. There is possibility of bed availability today with [facility] and will attempt for placement. Patient required quite a bit of redirection overnight. Medications were directed by psychiatry. Dr. Henriquez felt patient responded well to 100 mg of quetiapine and patient was not particularly sedated. Will increase to 100 mg b.i.d., patient's home medications were ordered. Patient has been redirected multiple times this morning, he has taken his am medications without issue. Patient's family contacted the facility. At this time they would like the patient discharged to their care. They have stated that [facility] and he has been in their facility in the past. We did have our social staff worker reach out to the [facility] MANAGER [employer]PORATE COMMUNICATIONS there is no option for ED to ED transfer and their facility. Patient's family arrived they asked for medication prior to to discharge. Discharge Plan Departure Patient Disposition: Home Clinical Impression: Behavioral problems, Dementia Activity Restrictions/Additional Instructions: You have been discharged into your families care today. I hope you continue to do well. You did receive an increased dose of Seroquel 100 mg overnight and this morning which was helpful in terms of behavior and not particularly sedating. You may return at any time for re-evaluation. Prescriptions: No Action metoprolol succinate 100 mg tablet extended release 24 hr 100 mg PO DAILY Qty: 90 1RF citalopram 20 mg tablet 30 mg PO DAILY Qty: 135 3RF aspirin 81 mg tablet,delayed release (DR/EC) 81 mg PO DAILY lisinopril 20 mg tablet 20 mg PO DAILY Qty: 90 1RF gemfibrozil 600 mg tablet 600 mg PO BID Qty: 180 1RF Referrals: Ang Xiong DO [Primary Care Provider] - Visit Report Forms: Patient Portal/API
[2022-03-21 16:00] VITALS: BP 167/80; PULSE 50; RESP 18; O2SAT 96
[2022-03-21 16:01] LABS: Add Manual Diff / Slide Review NO; Basophils Absolute Auto 0 /uL (0-100); Basophils Percent Auto 0.6 % (0-2); Eosinophils Absolute Auto 100 /uL (0-450); Eosinophils Percent Auto 1.3 % (2-4); Hematocrit 47.2 % (41-53); Hemoglobin 16.4 g/dL (13.5-17.5); Lymphocytes Absolute Auto 1900 /uL (1100-4500); Lymphocytes Percent Auto 22.3 % (25-40); Mean Corpuscular HGB Conc 34.7 % (30-36); Mean Corpuscular Hemoglobin 31.3 PG (26-34); Mean Corpuscular Volume 90.3 fL (80-100); Monocytes Absolute Auto 700 /uL (0-900); Monocytes Percent Auto 8.1 % (3-14); Neutrophils Absolute Auto 5700 /uL (1500-7000); Neutrophils Percent Auto 67.7 % (50-75); Platelet Count 220 X10^3/uL (150-400); Red Blood Cell Count 5.23 X10^6/uL (4.5-5.9); Red Cell Distribution Width 12.8 % (11.6-14.8); White Blood Cell Count 8.4 X10^3/uL (4.5-11.0)
[2022-03-21] MEDS: SODIUM CHLORIDE 0.9% 1,000 ML 150 ML IV (16:02)
[2022-03-21 16:10] LABS: INR 1.1 (0.9-1.3); Prothrombin Time 12.8 SECONDS (10.1-12.7)
[2022-03-21 16:13] LABS: PTT Partial Thromboplastin Tim 30 SECONDS (26-36)
[2022-03-21 16:19] LABS: Lactate (Lactic Acid) 1.2 mmol/L (0.7-2.1)
--- NOTE | 2022-03-21 16:20 | PC.NURSE ---
pt speaking to self, conversation fragmented and nonsensical.
[2022-03-21 16:21] LABS: Acetaminophen < 10 ug/mL (10-30); Alanine Aminotransferase 24 IU/L (<50); Albumin 4.2 g/dL (3.5-5.0); Albumin Globulin Ratio 1.3 (1.0-2.8); Alkaline Phosphatase 80 U/L (38-126); Ammonia (NH3) 24 umol/L (9-30); Aspartate Aminotransferase 27 IU/L (17-59); BUN Creatinine Ratio 15.2 (6-22); Bilirubin Total 0.7 mg/dL (0.2-1.3); Blood Urea Nitrogen 15 mg/dL (9-20); Calcium 9.3 mg/dL (8.4-10.2); Carbon Dioxide 25 mmol/L (22-32); Chloride 104 mmol/L (98-107); Creatine Kinase 53 U/L (55-170); Estimated Glomerular Filt Rate > 60 mL/min (>60); Ethanol (ETOH) < 10 mg/dL; Globulin 3.2 g/dL (1.7-4.1); Glucose 89 mg/dL (80-110); HEMOLYSIS 20 (0-50); Potassium 4.1 mmol/L (3.4-5.1); Salicylate < 1.0 mg/dL (<20); Sodium 138 mmol/L (137-145); Total Protein 7.4 g/dL (6.3-8.2)
[2022-03-21 16:28] LABS: UR Morphine/Opiate cutoff 300 Negative (Negative); Ur Creatinine Normal (Normal); Ur Specific Gravity Normal (Normal); Urine Amphetamines Negative (Negative); Urine Barbiturates Negative (Negative); Urine Benzodiazepines Negative (Negative); Urine Cocaine Negative (Negative); Urine MDMA Negative (Negative); Urine Methadone Negative (Negative); Urine Methamphetamines Negative (Negative); Urine Oxycodone Negative (Negative); Urine Phencyclidine Negative (Negative); Urine Tetrahydrocannabinol Negative (Negative); Urine Tricyclic Antidepressant Positive (Negative); Urine pH Normal (Normal)
[2022-03-21 16:30] VITALS: BP 179/74; PULSE 51; RESP 18; O2SAT 96
[2022-03-21 16:31] LABS: Troponin I < 0.012 ng/mL (0.01-0.034)
[2022-03-21 16:32] LABS: Appearance Urine UA CLEAR; Bilirubin Urine UA NEGATIVE (NEGATIVE); Color Urine UA YELLOW; Glucose Urine UA NEGATIVE (Negative); Ketones Urine UA NEGATIVE (NEGATIVE); Leukocyte Esterase Urine UA NEGATIVE (NEGATIVE); Nitrite Urine UA NEGATIVE (Negative); Occult Blood Urine UA NEGATIVE (Negative); Protein Urine UA NEGATIVE (Negative); Specific Gravity Urine UA 1.025 (1.000-1.035); Urobilinogen Urine UA 0.2 E.U./dL (0.2)
[2022-03-21 16:36] LABS: Prolactin 8.4 ng/mL (3.7-17.9)
[2022-03-21 16:38] LABS: Bacteria Urine Occasional (0-1); RBC Urine None Seen (0-5/HPF); Squamous Epithelial Cell Urine None Seen (0-5/HPF); WBC Urine 0-1/HPF (0-5/HPF)
[2022-03-21 16:53] LABS: Thyroid Stimulating Hormone 1.76 uIU/mL (0.47-4.68)
[2022-03-21 16:56] LABS: COVID19 -Nasal RAPID Negative (Negative)
[2022-03-21 17:00] VITALS: BP 173/74; PULSE 47; RESP 18; O2SAT 96
--- NOTE | 2022-03-21 18:27 | CM.SWNOTE ---
Addendum entered by Danielle Blue 03/21/22 18:54: *patient has hx of memory issues and depression. Patient's reports that patient was at [facility] for gypsy-psych 3 weeks ago. Patient has PCP Ang Xiong, Patient has AARP Medicare and [employer] medicare, and [employer] Medicare Advantage. 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 Patient states I am waiting for someone to give me rider ticket worker. Patient is A/O to self and person, patient does not where he is and states he is on the 5th, I don't know how things worked. Patient does not know what day it is. Patient states I'm half out of my mind Patient presents as euthymic, full range, patient presents as redirectible, calm and communicative. Patient's thought process presents as word salad and disorganized. Patient does not respond to direct questions asked. Patient states he wants to leave and go home. Patient continues make statements that he needs to go up to road and cannot describe where. endorses to cylinder filler and ED provider patient's increasing visual hallucinations and response to internal stimuli. Per RNs, they observed patient speak to self about [place]. Patient denies HI and SI. Patient makes statements about difficulty at home with and feelings of misunderstanding. Patient states he thought about hitting her on the back of the head but won't. endorses to ED provider concerns for her safety and states that patient has tried to elope home and when she intervenes he puts his fists up and makes statements about hitting her. In regards to home life, patient states everything was fine and then it blew up. It is the opinion of this PNEUMATIC TOOL REPAIRER that patient is gravely disabled and would benefit from gypsy-psych inpatient bed. Patient endorses his desire to leave hospital, and does not want to brick picker patient until she feels it is safe to do so. It is the opinion of this PNEUMATIC TOOL REPAIRER that patient will need DCR assessment to determine [facility] placement. PNEUMATIC TOOL REPAIRER reviews the above with ED provider Dr. Brownlee who indicates agreement and understanding. Plan: PNEUMATIC TOOL REPAIRER to dispatch DCR for [facility] evaluation. ASHU Sue
--- NOTE | 2022-03-21 18:41 | CM.SWNOTE ---
Addendum entered by Danielle Blue 03/21/22 20:12: STATE ASSESSED PROPERTIES DIRECTOR Note Per ED provider Dr. Henriquez, MENG John endorses that he contacted the [facility] and it was reported that patient was not at that hospital and the [facility] does not have a geropsych unit. MENG John meets with patient via ipad, and afterwards informs STATE ASSESSED PROPERTIES DIRECTOR that he is going to seek for [facility] bed for patient but it may be difficult to find bed. STATE ASSESSED PROPERTIES DIRECTOR informs junior loan processorOLIVE Thompson and OLIVE Coulter. ASHU Sue Original Note: STATE ASSESSED PROPERTIES DIRECTOR Note STATE ASSESSED PROPERTIES DIRECTOR [facility] and [facility] call (Ph. # [phone]). STATE ASSESSED PROPERTIES DIRECTOR calls [facility] and it is reported that they have gypsy-psych beds but can review patient for tomorrow. ASHU Sue
--- NOTE | 2022-03-21 19:37 | PC.NURSE ---
Pt with expressive aphasia, needs redirection, multiple attempts to leave but reasoned with to go back to the room. Pt's shoes placed in patient belongings.
[2022-03-21] MEDS: GABAPENTIN 100 MG CAPSULE PO (19:41)
[2022-03-21] MEDS: QUETIAPINE 25 MG TABLET 50 MG PO (19:41)
--- NOTE | 2022-03-21 20:42 | PC.NURSE ---
Patients pocket knife was confiscated and is put in the locked cabinet
--- NOTE | 2022-03-21 20:43 | PC.NURSE ---
patients pocket knife in locked cabinet with a patient label. charge aware.
[2022-03-21 21:27] VITALS: BP 143/73; PULSE 47; RESP 16; O2SAT 98
--- NOTE | 2022-03-21 21:27 | PC.NURSE ---
patient lying on stretcher. he let me take vital signs. patient states I wish I could knock him out I asked who he was talking about and he pointed to the nurses station and states you know who and I responded No I don't and then he stated you don't have to mention me, just listen. charge aware.
--- NOTE | 2022-03-21 22:24 | PC.NURSE ---
Patient got out of bed and walked around the room obviously upset. I let him vent his frustrations to me but his stories were not very clear; starting off with saying someone didnt do the right thing... and leading to him having concern of his with someone else... Patient is anxious about getting back home and states he is going to walk out.
[2022-03-21] MEDS: QUETIAPINE 100 MG TABLET PO (22:50)
--- NOTE | 2022-03-21 23:37 | PC.NURSE ---
Patient jumped out of bed and wanted to go home. I asked how we could make his stay more comfortable and patient was agreeable to brushing his teeth. Patient back in bed laying down and encouraged to rest.
--- NOTE | 2022-03-22 00:17 | PC.NURSE ---
Assisted patient back into his bed and encouraged him to rest here tonight. Patient stated he will rest for another 30 minutes until he needs to leave by pushing the car down the hill.
--- NOTE | 2022-03-22 00:30 | PC.NURSE ---
patient back out of bed and attempting to leave to go home. I was able to talk patient into staying and resting in bed.
--- NOTE | 2022-03-22 01:17 | PC.NURSE ---
pt continues to get up about every 15-20 min. Pt redirects with questions about his life- ex- his dog, children, occupation. his responses are jumbled and do not make any sense but able to keep pt talking until he is willing to lay down. pt starts yawning and so I tell him that I will let him get some sleep.
--- NOTE | 2022-03-22 03:01 | PC.NURSE ---
pt ambulated to the restroom with at steady gait
[2022-03-22 07:41] VITALS: BP 157/68; PULSE 61; RESP 14; TEMP 36.9; O2SAT 97
[2022-03-22] MEDS: QUETIAPINE 100 MG TABLET PO (08:38)
[2022-03-22 08:50] VITALS: BP 162/81; PULSE 73
[2022-03-22] MEDS: METOPROLOL ER 50 MG TABLET 100 MG PO (08:50)
[2022-03-22 08:51] VITALS: BP 163/81; PULSE 73
[2022-03-22] MEDS: lisinopriL 20 MG TABLET PO (08:51)
[2022-03-22] MEDS: gemfibroziL 600 MG TABLET PO (08:52)
[2022-03-22] MEDS: ASPIRIN EC 81 MG TABLET PO (08:53)
--- NOTE | 2022-03-22 08:59 | PC.NURSE ---
call son for update tomorrow-José Antonio FAN walk away for grave disability/[facility] 1812 can redispatch [id number] called & left VM *Call Florencio @8 AM if pt is walkaway [facility], they are reviewing for tomorrow 03/22 (Ph. # [phone]) went home Pt's pocket knife is left in the locked cabinet [facility] called at [phone] and stated they have no beds for this patient resubmit These are running notes left in comment section
[2022-03-22 11:17] VITALS: BP 131/71; PULSE 63; RESP 18; O2SAT 97
[2022-03-22 12:13] LABS: Acinetobacter baumannii Not Detected (Not Detect); Enterobacteriaceae species Not Detected (Not Detect); Enterococcus species Not Detected (Not Detect); Listeria monocytogenes Not Detected (Not Detect); Methicillin-resistant gene Not Detected (Not Detect); Staphylococcus species Detected (Not Detect); Streptococcus agalactiae (Gr B Not Detected (Not Detect); Streptococcus pyogenes (Gr A) Not Detected (Not Detect); Streptococcus species Not Detected (Not Detect)
[2022-03-22 12:14] LABS: Candida albicans Not Detected (Not Detect); Candida glabrata Not Detected (Not Detect); Candida krusei Not Detected (Not Detect); Candida parapsilosis Not Detected (Not Detect); Candida tropicalis Not Detected (Not Detect); E. coli Not Detected (Not Detect); Enterobacter cloacae complex Not Detected (Not Detect); Haemophilus influenzae Not Detected (Not Detect); Neisseria meningitidis Not Detected (Not Detect); Proteus species Not Detected (Not Detect); Pseudomonas aeruginosa Not Detected (Not Detect); Serratia marcescens Not Detected (Not Detect); Streptococcus pneumonia Not Detected (Not Detect)
--- NOTE | 2022-03-22 13:28 | CM.SWNOTE ---
HUMAN CAPITAL CONSULTANT Note HUMAN CAPITAL CONSULTANT is informed that patient was DCR walk away last evening and that [facility] not have beds today but may have beds on 03/24. HUMAN CAPITAL CONSULTANT receives VM from [facility] and speaks with RN who reports that patient's has been in contact with them as well. It was reported that [facility] RN states that was also considering driving patient to [place] ER or coordinating with family to do so. HUMAN CAPITAL CONSULTANT contacts [facility] and it is reported that they do not accept ER to ER transfers and they do not accept [facility] transfers from [facility] (Only [facility]). HUMAN CAPITAL CONSULTANT reviews the above with RN and ED provider Dr. Wadsworth and it is identified that if family can safely transport patient then that is a safe plan of d/c. HUMAN CAPITAL CONSULTANT calls patient's Samir, who reports that her and her son can transport patient to [place] ER. Samir states that they will be there at 1430 (then calls back and states 1530 brass pickler time). Samir requests medication to assist patient with transport. She states that patient's normal rx is 75 mg of Seroquil and 100 mg of Gabapentin. states that she wants to seek out of [facility] services for patient. endorses that she is a trigger for patient as she is the one that redirects patient and often upsets him. HUMAN CAPITAL CONSULTANT reviews the above with ED provider. HUMAN CAPITAL CONSULTANT to review this with [facility] upon patient's d/c. Plan: Patient to d/c with and son to transport patient to [place] ED at approximately 1530. ASHU Sue
[2022-03-22] MEDS: QUETIAPINE 25 MG TABLET PO (15:22)
[2022-03-22] MEDS: GABAPENTIN 100 MG CAPSULE PO (15:22)
[2022-03-23 13:09] LABS: Osmolality, Serum 289 mOsmol/kg (280-301)
== END 2022-03-22 15:39 | disposition home or self-care (01) ==
PROVIDERS: Emergency Medicine; Emergency Provider Emergency Medicine; PCP Family Medicine
DX: F03.90 Unspecified dementia, unspecified severity, without behavioral disturbance, psychotic disturbance, mood disturbance, and anxiety (principal); R45.1 Restlessness and agitation; R44.1 Visual hallucinations
CPT/HCPCS: 36415; 70450; 80053; 80305; 80320; 80329; 81001; 82140; 82550; 82962; 83605; 83930; 84146; 84443; 84484; 85025; 85610; 85730; 87040; 87086; 87150; 87635; 99285; C9803; G0480